=== PATIENT | female | born 1940 | race Caucasian/White ===

== ENCOUNTER 2020-07-15 09:17 | Outpatient (REF) | payer MEDICARE, OTHER, SELFPAY ==
[2020-07-15 10:26] LABS: MANUAL DIFF FLAG NO
[2020-07-15 10:33] LABS: Basophils Percent Auto 0.7 % (0-2); Eosinophils Absolute Auto 0.1 X10*3/uL (0.0-0.4); Eosinophils Percent Auto 2.3 % (0-4); Hematocrit 39.6 % (37-47); Hemoglobin 12.5 g/dl (12.0-16.0); Imm Gran Abs Auto 0.03 X10*3/uL (0.00-0.03); Imm Gran Pct Auto 0.5 % (0.0-0.4); Lymphocytes Absolute Auto 2.2 X10*3/uL (1.2-4.9); Lymphocytes Percent Auto 36.2 % (20-40); Mean Corpuscular HGB Conc 31.6 g/dl (31.0-35.0); Mean Corpuscular Hemoglobin 27.4 pg (27.0-33.0); Mean Corpuscular Volume 86.8 fL (80-98); Monocytes Absolute Auto 0.4 X10*3/uL (0.1-1.2); Monocytes Percent Auto 7.4 % (2-11); Neutrophils Absolute Auto 3.2 X10*3/uL (2.0-8.3); Neutrophils Percent Auto 52.9 % (45-73); Platelet Count 169 X10*3/uL (160-400); Red Blood Count 4.56 X10*6/uL (4.20-5.50); Red Cell Distribution Width 14.5 % (11.0-16.0)
[2020-07-15 11:20] LABS: Alanine Aminotransferase 15 U/L (0-31); Albumin Level 4.1 g/dL (3.5-5.0); Alkaline Phosphatase 70 U/L (39-117); Anion Gap 12 (12-20); Aspartate Amino Transferase 15 U/L (5-31); Bilirubin Total 0.5 mg/dL (0.0-1.0); Blood Urea Nitrogen 16 mg/dL (9-16); Calcium 9.1 mg/dL (8.4-10.2); Carbon Dioxide 32 mmol/L (22-29); Chloride 103 mmol/L (96-108); Cholesterol 322 mg/dL; Estimated Glomerular Filt Rate > 60; Glucose Fasting 92 mg/dL (60-99); HDL Cholesterol 70 mg/dL; LDL Cholesterol Calculated 234 mg/dl; Potassium 4.9 mmol/l (3.3-5.1); Sodium 142 mmol/L (135-145); Total Protein 6.4 g/dL (6.5-8.0); Triglycerides 92 mg/dL
[2020-07-15 11:43] LABS: T4 Thyroxine < 3.0 ug/dL (4.5-12.0); Thyroid Stimulating Hormone 16.16 mIU/mL (0.32-4.0)
[2020-07-15 12:08] LABS: Glucose Urine UA NEG (NEG); Leukocyte Esterase Urine 1+ (NEG); Nitrite Urine POS (NEG); PH 5.5 (5.0-8.0); Specific Gravity - Urine 1.025 (1.005-1.025); Urine Blood TRACE (NEG); Urine Ketones NEG (NEG); Urine Protein NEG (NEG-TRACE)
[2020-07-15 12:19] LABS: Appearance Urine HAZY; Color Urine YELLOW
[2020-07-15 12:32] LABS: Creatinine Urine 126.58 mg/dL; Microalbum/Creatinine Ratio Ur 10.2 ug/mg cr
[2020-07-15 12:40] LABS: Bacteria Urine 3+ /LPF; Mucus Urine 1+ /LPF; Squamous Epithelial Cell Urine 1+ /LPF
== END 2020-07-15 09:18 | disposition home or self-care (01) ==
LOC: HO.LAB 09:17
PROVIDERS: PCP Internal Medicine; Visit Provider Internal Medicine
DX: I25.10 Atherosclerotic heart disease of native coronary artery without angina pectoris (principal); E03.9 Hypothyroidism, unspecified; E10.69 Type 1 diabetes mellitus with other specified complication
CPT/HCPCS: 36415; 80053; 80061; 81001; 81003; 82043; 84436; 84443; 85025; 87086; 87088; 87186

== ENCOUNTER 2020-11-24 13:43 | Outpatient (REF) | payer MEDICARE, OTHER, SELFPAY ==
[2020-11-24 16:27] LABS: MANUAL DIFF FLAG NO
[2020-11-24 16:31] LABS: Basophils Absolute Auto 0.1 X10*3/uL (0.0-0.2); Basophils Percent Auto 1.2 % (0-2); Eosinophils Absolute Auto 0.4 X10*3/uL (0.0-0.4); Eosinophils Percent Auto 6.1 % (0-4); Hemoglobin 12.3 g/dl (12.0-16.0); Imm Gran Abs Auto 0.02 X10*3/uL (0.00-0.03); Imm Gran Pct Auto 0.3 % (0.0-0.4); Lymphocytes Absolute Auto 1.7 X10*3/uL (1.2-4.9); Lymphocytes Percent Auto 26.3 % (20-40); Mean Corpuscular HGB Conc 32.4 g/dl (31.0-35.0); Mean Corpuscular Hemoglobin 27.4 pg (27.0-33.0); Mean Corpuscular Volume 84.6 fL (80-98); Mean Platelet Volume 11.7 fL (9.4-12.3); Monocytes Absolute Auto 0.4 X10*3/uL (0.1-1.2); Monocytes Percent Auto 6.8 % (2-11); Neutrophils Absolute Auto 3.8 X10*3/uL (2.0-8.3); Neutrophils Percent Auto 59.3 % (45-73); Platelet Count 213 X10*3/uL (160-400); Red Blood Count 4.49 X10*6/uL (4.20-5.50); Red Cell Distribution Width 13.3 % (11.0-16.0); White Blood Count 6.4 X10*3/uL (4.8-10.8)
[2020-11-24 17:32] LABS: Alanine Aminotransferase 9 U/L (0-31); Albumin Level 3.9 g/dL (3.5-5.0); Alkaline Phosphatase 101 U/L (39-117); Anion Gap 14 (12-20); Aspartate Amino Transferase 11 U/L (5-31); Bilirubin Total 0.6 mg/dL (0.0-1.0); Blood Urea Nitrogen 20 mg/dL (9-16); Calcium 8.8 mg/dL (8.4-10.2); Carbon Dioxide 29 mmol/L (22-29); Chloride 102 mmol/L (96-108); Cholesterol 217 mg/dL; Estimated Glomerular Filt Rate 57; Free T4 (Free Thyroxine) 0.55 ng/dL (0.71-1.85); Glucose Fasting 369 mg/dL (60-99); HDL Cholesterol 46 mg/dL; LDL Cholesterol Calculated 152 mg/dl; Sodium 139 mmol/L (135-145); Thyroid Stimulating Hormone 8.07 uIU/mL (0.32-4.0); Total Protein 6.3 g/dL (6.5-8.0); Triglycerides 95 mg/dL
[2020-11-24 18:32] LABS: Potassium 6.1 mmol/L (3.3-5.1)
== END 2020-11-24 13:44 | disposition home or self-care (01) ==
LOC: HO.LAB 13:43
PROVIDERS: Internal Medicine; Visit Provider Nurse Practitioner Family
DX: Z13.89 Encounter for screening for other disorder (principal)
CPT/HCPCS: 36415; 80053; 80061; 84439; 84443; 85025; 87086

== ENCOUNTER 2020-11-24 13:57 | Outpatient (REF) | payer MEDICARE, OTHER, SELFPAY | END 2020-11-24 13:58 | disposition home or self-care (01) | LOC: HO.HMGCLDS 13:57 | PROVIDERS: PCP Internal Medicine; Visit Provider Internal Medicine | DX: E10.69 Type 1 diabetes mellitus with other specified complication (principal); I25.10 Atherosclerotic heart disease of native coronary artery without angina pectoris; E78.00 Pure hypercholesterolemia, unspecified; E03.9 Hypothyroidism, unspecified; R10.9 Unspecified abdominal pain | CPT/HCPCS: 36415; 80053; 80061; 84439; 84443; 85025; 87086; 87088; 87186 ==

== ENCOUNTER 2021-01-13 09:24 | Outpatient (REF) | payer MEDICARE, OTHER, SELFPAY ==
--- NOTE | ~2021-01-13 | XR_ITS ---
EXAMINATION: XR KNEE, LEFT CLINICAL INFORMATION: Pain knee COMPARISON: None TECHNIQUE: Four views of the left knee. FINDINGS: There is mild osteopenia. There is no fracture or dislocation. No destructive process. No definite joint narrowing and no erosive change or chondrocalcinosis. There may be some trace fluid suprapatellar bursa. No significant fluid. There is spurring at the quadriceps insertion patella. Hoffa's fat pad is unremarkable. XR/XR knee LT 4V IMPRESSION: Osteopenia. No joint narrowing or erosive change. Probable trace effusion.
[2021-01-13 11:06] LABS: Estimated Average Glucose 260 mg/dL; Hemoglobin A1c % 10.7 %
[2021-01-13 11:19] LABS: Alanine Aminotransferase 13 U/L (0-31); Albumin Level 3.9 g/dL (3.5-5.0); Alkaline Phosphatase 86 U/L (39-117); Anion Gap 13 (12-20); Aspartate Amino Transferase 13 U/L (5-31); Bilirubin Total 0.7 mg/dL (0.0-1.0); Blood Urea Nitrogen 21 mg/dL (9-16); Calcium 9.1 mg/dL (8.4-10.2); Carbon Dioxide 29 mmol/L (22-29); Chloride 101 mmol/L (96-108); Cholesterol 270 mg/dL; Estimated Glomerular Filt Rate > 60; Glucose Fasting 159 mg/dL (60-99); HDL Cholesterol 58 mg/dL; LDL Cholesterol Calculated 193 mg/dl; Magnesium 2.2 mg/dL (1.6-2.6); Potassium 4.8 mmol/L (3.3-5.1); Sodium 138 mmol/L (135-145); Total Protein 6.2 g/dL (6.5-8.0); Triglycerides 96 mg/dL
[2021-01-13 11:44] LABS: Free T4 (Free Thyroxine) < 0.40 ng/dL (0.71-1.85); Thyroid Stimulating Hormone 10.88 uIU/mL (0.32-4.0)
[2021-01-13 12:53] LABS: Glucose Urine UA NEG (NEG); Leukocyte Esterase Urine 1+ (NEG); Nitrite Urine POS (NEG); PH 5.5 (5.0-8.0); Specific Gravity - Urine 1.025 (1.005-1.025); UACC Culture Trigger YES; Urine Blood NEG (NEG); Urine Ketones NEG (NEG); Urine Protein NEG (NEG-TRACE)
[2021-01-13 12:56] LABS: Appearance Urine CLOUDY; Color Urine YELLOW
[2021-01-13 13:01] LABS: Bacteria Urine 3+ /LPF; Mucus Urine 3+ /LPF; RBC Urine 0 /HPF (0); Renal Epithelial Cells Urine 1+ /LPF; Squamous Epithelial Cell Urine 1+ /LPF
[2021-01-13 13:43] LABS: Creatinine Urine 132.48 mg/dL; Microalbum/Creatinine Ratio Ur 7.5 ug/mg cr
== END 2021-01-13 09:25 | disposition home or self-care (01) ==
LOC: HO.LAB 09:24
PROVIDERS: PCP Internal Medicine; Visit Provider Internal Medicine
DX: M25.562 Pain in left knee (principal); E10.69 Type 1 diabetes mellitus with other specified complication; E03.9 Hypothyroidism, unspecified; E78.00 Pure hypercholesterolemia, unspecified; E87.5 Hyperkalemia
CPT/HCPCS: 36415; 73564; 80053; 80061; 81001; 81003; 82043; 83036; 83735; 84439; 84443; 87086; 87186

== ENCOUNTER 2021-01-17 08:10 | Emergency (ER) | payer MEDICARE, OTHER, SELFPAY ==
--- NOTE | ~2021-01-17 | XR_ITS ---
EXAMINATION: XR CHEST CLINICAL INFORMATION: Generalized weakness, rule out dehydration. COMPARISON: None TECHNIQUE: Frontal view of the chest was obtained. FINDINGS: The lungs are clear. Post surgical changes are seen in the cardiac silhouette with multiple surgical clips and a mitral valve prosthesis. The heart and mediastinal structures are otherwise unremarkable. Multilevel sternotomy wires are intact. A lead overlies the left lower chest. XR/XR chest 1V IMPRESSION: No acute cardiopulmonary process.
[2021-01-17 08:19] VITALS: BP 104/73; BP 180/76; PULSE 66; PULSE 82; RESP 12; TEMP 36.4; O2SAT 100; O2SAT 98; BMI 20.6
--- NOTE | 2021-01-17 08:24 | ECG_ITS ---
Test Reason : WEAKNESS Blood Pressure : / mmHG Vent. Rate : 066 BPM Atrial Rate : 066 BPM P-R Int : 192 ms QRS Dur : 090 ms QT Int : 428 ms P-R-T Axes : 072 -57 105 degrees QTc Int : 448 ms Sinus rhythm with Premature atrial complexes Left axis deviation Nonspecific T wave abnormality Abnormal ECG No previous ECGs available Referred By: Sophie Hoover Electronically Signed By:JAMEE KIM MD
[2021-01-17 08:26] LABS: Glucose, Whole Blood 237 mg/dL (60-115)
[2021-01-17] MEDS: 0.9 % Sodium Chloride 1,000 ML 999 ML IVCONT ×2 (08:32→10:42)
--- NOTE | 2021-01-17 08:34 | ED.GENADULT ---
HPI - General Adult General Chief complaint: General Medical Stated complaint: weakness Time Seen by Provider: 01/17/21 08:23 Source: patient and EMS Mode of arrival: EMS Limitations: no limitations History of Present Illness HPI narrative: 80-year-old female came in by ambulance for evaluation of generalized weakness and possible dehydration. This is an 80-year-old female came in from home (patient lives home alone), symptoms started since yesterday, patient otherwise declined chest pain, abdominal pain, urinary symptoms, and headache. Patient stated that she is not drinking enough fluid and she is dehydrated. Related Data Home Medications Medication Instructions Recorded Confirmed levothyroxine 75 mcg tablet 75 mcg PO DAILY 08/04/20 08/21/20 pen needle, diabetic 32 gauge x #50 ea 08/04/20 08/21/20 Previous Rx's Medication Instructions Recorded blood-glucose meter,continuous #1 ea 08/04/20 blood-glucose sensor #3 ea 08/04/20 blood-glucose transmitter #1 ea 08/04/20 insulin pump cartridge #5 ea 08/04/20 subcutaneous insulin pump #1 ea 08/04/20 insulin glargine 100 unit/mL (3 See Rx Instructions SUBCUT DAILY 10/02/20 mL) subcutaneous pen #15 ml prednisone 20 mg tablet 40 mg PO DAILY 5 Days #10 tab 11/24/20 sulfamethoxazole 800 1 tab PO BID 7 Days #14 tab 11/24/20 mg-trimethoprim 160 mg tablet Allergies Allergy/AdvReac Type Severity Reaction Status Date / Time No Known Allergies Allergy Verified 08/21/20 02:15 Review of Systems Review of Systems: All other systems are reviewed and are negative Constitutional: Reports as per HPI and Reports no additional constitutional complaints Eyes: Reports as per HPI and Reports no additional eye complaints Reports system reviewed and no additional complaints, except as documented Cardiovascular: Reports as per HPI and Reports no additional cardiovascular complaints Respiratory: Reports as per HPI and Reports no additional respiratory complaints Gastrointestinal: Reports as per HPI and Reports no additional gastrointestinal complaints Genitourinary: Reports no additional female genitourinary complaints Musculoskeletal: Reports no additional musculoskeletal complaints Skin/Breast: Reports system reviewed and no additional complaints, except as docu Psychiatric: Reports no additional psychiatric complaints Endocrine: Reports no additional endocrine complaints Hematologic/Lymphatic: Reports no additional hematologic/lymphatic complaints Allergic/Immunologic: Reports no additional allergic/immunologic complaints Reports system reviewed and no additional complaints, except as documented and Reports Abnormal speech present [facility] Past Medical History Medical History Acquired hypothyroidism Blind left eye Coronary artery disease Hyperkalemia [facility] (current) use of insulin Pure hypercholesterolemia Right knee pain Type 1 diabetes mellitus with other specified complication Surgical History History of quadruple bypass Family History Family History Father No problems noted. Mother No problems noted. Social History Social History (Updated 08/21/20 @ 02:16 by Vishnu Pascal MD) Smoking Status: Never smoker Smoked in Last 30 Days: No Use of substances other than those prescribed or required for medical reasons: No Advance Directives: Yes Advance Directives on File: Yes Advance Directives Date on File: 08/04/20 Physical Exam Vital Signs: Vital Signs: Last Vital Signs Temp 97.6 F 01/17/21 08:19 Pulse 77 01/17/21 10:24 Resp 16 01/17/21 10:24 BP 179/58 H 01/17/21 10:24 Pulse Ox 97 01/17/21 10:24 Body Mass Index 20.6 Vital signs have been reviewed as appeared to be correct. Blood pressure normal. Heart rate normal. Respiration rate normal. Temperature normal. Oxygen saturation normal. Appearance: Alert. Oriented X3. No acute distress. Head: Normal external exam. Normocephalic. Atraumatic. No [place] signs noted. No raccoon eyes noted Eyes: PERRLA. EOMI. Conjunctiva and sclera normal. Eyelids normal. ENT: TM's Normal. Pharynx normal. Uvula midline. Moist mucous membranes. No trismus noted. No drooling noted. No muffled voice noted. Neck: Normal inspection. Neck supple. FROM. No adenopathy. Thyroid Normal. No meningeal signs. No neck mass noted. CVS: Normal heart rate and rhythm. Heart sound normal. No murmurs noted. Pulses normal throughout. Respiratory: No respiratory distress. Painless inspiration. Breath sounds normal. No wheezes/rales/rhonchi noted. Chest nontender. No accessory muscle usage noted or decreased air movement noted. Abdomen: Soft and nontender. Bowel sounds normal in all 4 quadrants. No distention noted. No organomegaly noted. No visible injury noted. Back: No CVA tenderness. Full range of motion noted. Skin: Skin warm and dry. Normal skin color. Normal skin turgor. No rashes/lesions/lacerations noted. Extremities: No lower extremity edema. Extremities exhibit normal range of motion. Extremities nontender. Neuro: Oriented X 3. No motor deficit. No sensory deficit. Reflexes normal. Course Course Course Narrative: Assessment and plan. 80-year-old female came in with generalized weakness thought to be secondary to dehydration, patient UA is consistent with a mild UTI, patient was over antibiotic but patient adamantly refused to take it because she said her UTI usually goes away with Uristat and drinking fluids. Patient feels better after IV hydration, patient is ambulating in the emergency department with a walker (patient normally walk with a walker). Patient was instructed to drink plenty of oral fluids. Medical Decision Making Lab Data Lab results reviewed: Yes I reviewed the patient's lab results. Result diagrams: 01/17/21 08:36 01/17/21 08:36 Labs: Lab Results 01/17/21 01/17/21 01/17/21 Range/Units 08:19 08:36 08:36 WBC 6.3 (4.8-10.8) X10*3/uL RBC 4.65 (4.20-5.50) X10*6/uL Hgb 12.7 (12.0-16.0) g/dl Hct 38.8 (37-47) % MCV 83.4 (80-98) fL MCH 27.3 (27.0-33.0) pg MCHC 32.7 (31.0-35.0) g/dl RDW 14.3 (11.0-16.0) % Plt Count 209 (160-400) X10*3/uL MPV 11.1 (9.4-12.3) fL Immature Gran % (Auto) 0.3 (0.0-0.4) % Neut % (Auto) 60.5 (45-73) % Lymph % (Auto) 27.4 (20-40) % [place] % (Auto) 6.7 (2-11) % Eos % (Auto) 4.0 (0-4) % Baso % (Auto) 1.1 (0-2) % Lymph # (Auto) 1.7 (1.2-4.9) X10*3/uL [place] # (Auto) 0.4 (0.1-1.2) X10*3/uL Eos # (Auto) 0.3 (0.0-0.4) X10*3/uL Baso # (Auto) 0.1 (0.0-0.2) X10*3/uL Abs Immat Gran (auto) 0.02 (0.00-0.03) X10*3/uL Absolute Neuts (auto) 3.8 (2.0-8.3) X10*3/uL Absolute Nucleated RBC 0.000 (0.0-0.012) X10*3/uL Nucleated RBC % (auto) 0.0 (0.0-0.2) /100WBC Sodium 136 (135-145) mmol/L Potassium 4.3 (3.3-5.1) mmol/L Chloride 99 (96-108) mmol/L Carbon Dioxide 25 (22-29) mmol/L Anion Gap 16 (12-20) BUN 17 H (9-16) mg/dL Creatinine 0.80 (0.5-1.4) mg/dL Estim Creat Clear Calc 49.7 Estimated GFR > 60 POC Glucose 237 H (60-115) mg/dL Random Glucose 292 H (60-115) mg/dL Calcium 8.7 (8.4-10.2) mg/dL Total Bilirubin 0.9 (0.0-1.0) mg/dL Direct Bilirubin 0.3 (0.0-0.5) mg/dL AST 10 (5-31) U/L ALT 12 (0-31) U/L Alkaline Phosphatase 99 (39-117) U/L Troponin I High Sens (<3.5-17.0) ng/L B-Natriuretic Peptide (<100) pg/mL Total Protein 6.1 L (6.5-8.0) g/dL Albumin 3.7 (3.5-5.0) g/dL Lipase < 4 L (8-78) U/L Urine Color Urine Appearance Urine pH (5.0-8.0) Ur Specific [place] (1.005-1.025) Urine Protein (NEG-TRACE) MG/DL Urine Glucose (UA) (NEG) MG/DL Urine Ketones (NEG) MG/DL Urine Blood (NEG) Urine Nitrite (NEG) Ur Leukocyte Esterase (NEG) Urine RBC (0) /HPF Urine WBC (0-4) /HPF Ur Squamous Epith Cells /LPF Urine Bacteria /LPF COVID-19 (HERB) (Negative) COVID-19 Clin Com 01/17/21 01/17/21 01/17/21 Range/Units 08:36 08:37 10:27 WBC (4.8-10.8) X10*3/uL RBC (4.20-5.50) X10*6/uL Hgb (12.0-16.0) g/dl Hct (37-47) % MCV (80-98) fL MCH (27.0-33.0) pg MCHC (31.0-35.0) g/dl RDW (11.0-16.0) % Plt Count (160-400) X10*3/uL MPV (9.4-12.3) fL Immature Gran % (Auto) (0.0-0.4) % Neut % (Auto) (45-73) % Lymph % (Auto) (20-40) % [place] % (Auto) (2-11) % Eos % (Auto) (0-4) % Baso % (Auto) (0-2) % Lymph # (Auto) (1.2-4.9) X10*3/uL [place] # (Auto) (0.1-1.2) X10*3/uL Eos # (Auto) (0.0-0.4) X10*3/uL Baso # (Auto) (0.0-0.2) X10*3/uL Abs Immat Gran (auto) (0.00-0.03) X10*3/uL Absolute Neuts (auto) (2.0-8.3) X10*3/uL Absolute Nucleated RBC (0.0-0.012) X10*3/uL Nucleated RBC % (auto) (0.0-0.2) /100WBC Sodium (135-145) mmol/L Potassium (3.3-5.1) mmol/L Chloride (96-108) mmol/L Carbon Dioxide (22-29) mmol/L Anion Gap (12-20) BUN (9-16) mg/dL Creatinine (0.5-1.4) mg/dL Estim Creat Clear Calc Estimated GFR POC Glucose (60-115) mg/dL Random Glucose (60-115) mg/dL Calcium (8.4-10.2) mg/dL Total Bilirubin (0.0-1.0) mg/dL Direct Bilirubin (0.0-0.5) mg/dL AST (5-31) U/L ALT (0-31) U/L Alkaline Phosphatase (39-117) U/L Troponin I High Sens 3.5 (<3.5-17.0) ng/L B-Natriuretic Peptide 26 (<100) pg/mL Total Protein (6.5-8.0) g/dL Albumin (3.5-5.0) g/dL Lipase (8-78) U/L Urine Color YELLOW Urine Appearance HAZY Urine pH 6.0 (5.0-8.0) Ur Specific [place] 1.010 (1.005-1.025) Urine Protein NEG (NEG-TRACE) MG/DL Urine Glucose (UA) 500 H (NEG) MG/DL Urine Ketones 15 (NEG) MG/DL Urine Blood NEG (NEG) Urine Nitrite POS H (NEG) Ur Leukocyte Esterase 1+ H (NEG) Urine RBC 0 (0) /HPF Urine WBC 10-14 H (0-4) /HPF Ur Squamous Epith Cells 1+ /LPF Urine Bacteria 4+ /LPF COVID-19 (HERB) Negative (Negative) COVID-19 Clin Com See Note Imaging Data Chest x-ray: Radiologist's impression: No acute cardiopulmonary process. ECG Data Interpretation: Normal sinus rhythm at 65 beats per minutes, left axis deviation, normal intervals, nonspecific T-wave flattening in V5, and V6. Discharge Plan Discharge Clinical Impression: Acute dehydration, Urinary tract infection in female Patient Disposition: Home, Self-Care Instructions: Dehydration (ED), Urinary Tract Infection in Women (ED) Prescriptions: No Action Lantus Solostar U-100 Insulin 100 unit/mL (3 mL) insulin pen See Rx Instructions subcut DAILY Qty: 15 RF: 3 levothyroxine 75 mcg tablet 75 mcg PO DAILY RF: 0 (DME) pen needle, diabetic 32 gauge x 5/32 needle See Rx Instructions ea subcut .MEDSUPPLY Qty: 50 RF: 0 (DME) Omnipod Dash 5 Pack Pod Cartridge See Rx Instructions .ROUTE .MEDSUPPLY Qty: 5 RF: 11 (DME) Omnipod Insulin Management Misc See Rx Instructions .ROUTE .MEDSUPPLY Qty: 1 RF: 3 (DME) Dexcom G6 Sensor Device See Rx Instructions .ROUTE .MEDSUPPLY Qty: 3 RF: 5 (DME) Dexcom G6 Transmitter Device See Rx Instructions .ROUTE .MEDSUPPLY Qty: 1 RF: 5 (DME) Dexcom [employer] Crm Developer Misc See Rx Instructions .ROUTE .MEDSUPPLY Qty: 1 RF: 5 sulfamethoxazole-trimethoprim 800-160 mg tablet 1 tab PO BID 7 Days Qty: 14 RF: 0 prednisone 20 mg tablet 40 mg PO DAILY 5 Days Qty: 10 RF: 0 Referrals: Vishnu Pascal MD [Primary Care Provider] - 2 days
[2021-01-17 08:42] LABS: MANUAL DIFF FLAG NO
[2021-01-17 08:52] LABS: Basophils Absolute Auto 0.1 X10*3/uL (0.0-0.2); Basophils Percent Auto 1.1 % (0-2); Eosinophils Absolute Auto 0.3 X10*3/uL (0.0-0.4); Hematocrit 38.8 % (37-47); Hemoglobin 12.7 g/dl (12.0-16.0); Imm Gran Abs Auto 0.02 X10*3/uL (0.00-0.03); Imm Gran Pct Auto 0.3 % (0.0-0.4); Lymphocytes Absolute Auto 1.7 X10*3/uL (1.2-4.9); Lymphocytes Percent Auto 27.4 % (20-40); Mean Corpuscular HGB Conc 32.7 g/dl (31.0-35.0); Mean Corpuscular Hemoglobin 27.3 pg (27.0-33.0); Mean Corpuscular Volume 83.4 fL (80-98); Mean Platelet Volume 11.1 fL (9.4-12.3); Monocytes Absolute Auto 0.4 X10*3/uL (0.1-1.2); Monocytes Percent Auto 6.7 % (2-11); Neutrophils Absolute Auto 3.8 X10*3/uL (2.0-8.3); Neutrophils Percent Auto 60.5 % (45-73); Platelet Count 209 X10*3/uL (160-400); Red Blood Count 4.65 X10*6/uL (4.20-5.50); Red Cell Distribution Width 14.3 % (11.0-16.0); White Blood Count 6.3 X10*3/uL (4.8-10.8)
[2021-01-17 09:06] LABS: COVID-19 Test Negative (Negative)
[2021-01-17 09:14] LABS: Alanine Aminotransferase 12 U/L (0-31); Albumin Level 3.7 g/dL (3.5-5.0); Alkaline Phosphatase 99 U/L (39-117); Anion Gap 16 (12-20); Aspartate Amino Transferase 10 U/L (5-31); Bilirubin Direct 0.3 mg/dL (0.0-0.5); Bilirubin Total 0.9 mg/dL (0.0-1.0); Blood Urea Nitrogen 17 mg/dL (9-16); Calcium 8.7 mg/dL (8.4-10.2); Carbon Dioxide 25 mmol/L (22-29); Chloride 99 mmol/L (96-108); Creatinine Clr Calc Pharmacy 49.7; Estimated Glomerular Filt Rate > 60; Glucose Random 292 mg/dL (60-115); Lipase < 4 U/L (8-78); Potassium 4.3 mmol/L (3.3-5.1); Sodium 136 mmol/L (135-145); Total Protein 6.1 g/dL (6.5-8.0)
[2021-01-17 09:18] LABS: B Type Natriuretic Peptide 26 pg/mL (<100); Troponin-I High Sensitivity 3.5 ng/L (<3.5-17.0)
[2021-01-17 10:24] VITALS: BP 179/58; PULSE 77; RESP 16; O2SAT 97
[2021-01-17 10:33] LABS: Appearance Urine HAZY; Color Urine YELLOW; Glucose Urine UA 500 MG/DL (NEG); Leukocyte Esterase Urine 1+ (NEG); Nitrite Urine POS (NEG); UACC Culture Trigger YES; Urine Blood NEG (NEG); Urine Ketones 15 MG/DL (NEG); Urine Protein NEG (NEG-TRACE)
[2021-01-17 10:55] LABS: Bacteria Urine 4+ /LPF; RBC Urine 0 /HPF (0); Squamous Epithelial Cell Urine 1+ /LPF
[2021-01-17] MEDS: Acetaminophen 325 MG TABLET 650 MG PO (11:07)
--- NOTE | 2021-01-17 11:08 | PC.NURSE ---
patient states she does not want to take antibiotic because she is allergic to too many. none on record and patient does not know which ones. md aware. patient states she will go to [facility] and buy urostat which she states clears up her UTIs.
== END 2021-01-17 11:28 | disposition home or self-care (01) ==
PROVIDERS: Emergency Provider Emergency Medicine; PCP Internal Medicine
DX: N39.0 Urinary tract infection, site not specified (principal); E86.0 Dehydration; R53.1 Weakness; Z20.822 Contact with and (suspected) exposure to COVID-19; Z79.899 Other long term (current) drug therapy
CPT/HCPCS: 36415; 71045; 80048; 80076; 81001; 81003; 82947; 83690; 83880; 84484; 85025; 87086; 87088; 87186; 87635; 93005; 96360; 99284

== ENCOUNTER 2021-06-21 10:07 | Outpatient (REF) | payer MEDICARE, OTHER, SELFPAY ==
[2021-06-21 12:31] LABS: Estimated Average Glucose 278 mg/dL; Hemoglobin A1c % 11.3 %
[2021-06-21 12:42] LABS: Cholesterol 248 mg/dL; Glucose Fasting 284 mg/dL (60-99); HDL Cholesterol 50 mg/dL; LDL Cholesterol Calculated 181 mg/dl; Triglycerides 86 mg/dL
[2021-06-21 12:54] LABS: TSH reflex Free T4 5.89 uIU/mL (0.32-4.0)
[2021-06-21 14:28] LABS: Free T4 (Free Thyroxine) 0.63 ng/dL (0.71-1.85)
== END 2021-06-21 10:08 | disposition home or self-care (01) ==
LOC: HO.LAB 10:07
PROVIDERS: Absent Provider Internal Medicine; PCP Internal Medicine; Visit Provider Nurse Practitioner Family
DX: E03.9 Hypothyroidism, unspecified (principal); E11.9 Type 2 diabetes mellitus without complications; E78.00 Pure hypercholesterolemia, unspecified; I25.10 Atherosclerotic heart disease of native coronary artery without angina pectoris; Z79.4 Long term (current) use of insulin
CPT/HCPCS: 36415; 80061; 82947; 83036; 84439; 84443

== ENCOUNTER 2021-09-13 16:10 | Inpatient (IN) | payer MEDICARE, OTHER, SELFPAY ==
--- NOTE | ~2021-09-13 | XR_ITS ---
EXAMINATION: XR chest 1V CLINICAL INFORMATION: Reason for Exam cough COMPARISON: Chest radiograph 01/17/2021 TECHNIQUE: One view of the chest XR/XR chest 1V FINDINGS/IMPRESSION: Clear lungs. No pneumothorax. No pleural effusion. Normal cardiomediastinal silhouette. Median sternotomy wires. Cardiac valve prosthesis. Median sternotomy clips. Similar retained lead overlying the left chest wall.
--- NOTE | ~2021-09-13 | CT_ITS ---
EXAMINATION: CT ANGIOGRAM CHEST WITH AND WITHOUT CONTRAST (CT PULMONARY ANGIOGRAM FOR PE) CLINICAL INFORMATION: Dyspnea with high D-dimer, PE suspected. COMPARISON: Chest radiograph done earlier the same day. TECHNIQUE: Prior to contrast administration, noncontrast localization images were obtained. Subsequently, multidetector volumetric imaging was performed from the thoracic inlet to below the diaphragms following the administration of 65 mL Omnipaque 350 intravenous contrast. No contrast reaction reported. Sagittal, coronal, and MIP oblique sagittal reformatted images were obtained on the CT workstation, uploaded to PACS, and reviewed. This CT examination was performed using dose optimization techniques as appropriate, variously including the following: *Automated exposure control. *Adjustment of mA and/or kV according to patient size (this includes techniques or standardized protocols for targeted exams where dose is matched to indication/reason for exam; i.e. extremities or head). *Use of iterative reconstruction technique. Total exam dose-length product 192 mGy-cm. FINDINGS: QUALITY OF STUDY/CONTRAST BOLUS: Satisfactory. PULMONARY ARTERIES: No central or segmental pulmonary emboli. Mild dilatation of the central pulmonary arteries, which can be seen in the setting of pulmonary hypertension. THORACIC AORTA: No thoracic aortic dilatation or dissection. Scattered atherosclerotic calcifications. LUNG: There are mild, patchy bilateral ground-glass airspace opacities within the periphery of the lungs. Findings can be seen in the setting of a multifocal infectious or inflammatory pneumonia, including viral pneumonia. No large, confluent airspace consolidation. No large pulmonary mass. The central airways are patent. PLEURA: No pleural effusion or pneumothorax. MEDIASTINUM: Normal heart size. No pericardial effusion. No hilar or mediastinal lymphadenopathy. No evidence of septal bowing or right heart strain. CHEST WALL/AXILLA: No axillary or internal mammary lymphadenopathy. OSSEOUS STRUCTURES: No acute or suspicious osseous abnormality. UPPER ABDOMEN: Unremarkable. No reflux of contrast into the hepatic veins to suggest elevated right heart pressures. CT/CT angio chest PE protocol IMPRESSION: 1. No central or segmental pulmonary embolism. 2. Mild, patchy peripheral ground-glass opacities within the bilateral lungs. Findings can be seen in the setting of multifocal infectious or inflammatory pneumonia, including viral pneumonia. 3. No lymphadenopathy. VTE: Negative.
--- NOTE | ~2021-09-13 | US_ITS ---
EXAMINATION: US VENOUS ULTRASOUND WITH DOPPLER LOWER EXTREMITY, BILATERAL CLINICAL INFORMATION: Positive d-dimer. Covid positive. COMPARISON: None TECHNIQUE: Ultrasound of the deep veins is performed from the hip to the calf with compression sonography and color and pulse Doppler assessment. Spectral analysis with color-flow imaging is performed. FINDINGS: RIGHT: There is normal venous compression and respiratory variation and augmented flow. The visualized common femoral vein, superficial femoral vein, profunda femoral vein, popliteal vein, and the trifurcation region shows no evidence of deep venous thrombosis. The peroneal veins are not well seen. Limited compression of the popliteal vein. There is no significant popliteal fossa cyst. LEFT: There is normal venous compression and respiratory variation and augmented flow. The visualized common femoral vein, superficial femoral vein, profunda femoral vein, popliteal vein, and the trifurcation region shows no evidence of deep venous thrombosis. The peroneal veins are not well seen. Limited compression of the popliteal vein. There is no significant popliteal fossa cyst. If the patient's symptoms persist, followup ultrasound in 5 days 7 days might be of value to exclude proximal propagation from a non-visualized calf vein. US/US venous duplex LE IMPRESSION: No DVT demonstrated in the bilateral lower extremities. Limited compression of the popliteal vein bilaterally is of uncertain significance.
[2021-09-13 16:27] VITALS: BP 170/52; PULSE 80; O2SAT 97
--- NOTE | 2021-09-13 16:51 | ECG_ITS ---
Test Reason : sob Blood Pressure : / mmHG Vent. Rate : 069 BPM Atrial Rate : 069 BPM P-R Int : 170 ms QRS Dur : 088 ms QT Int : 390 ms P-R-T Axes : 070 -55 086 degrees QTc Int : 417 ms Sinus rhythm with Premature atrial complexes Left anterior fascicular block Anterior infarct , age undetermined Abnormal ECG When compared with ECG of 17-JAN-2021 09:02, Nonspecific T wave abnormality, improved in Lateral leads Referred By: Marek Villatoro Electronically Signed By:RUCHI CASANOVA
[2021-09-13 16:53] VITALS: BP 150/45; PULSE 75; RESP 18; TEMP 37.3; O2SAT 95; BMI 19.2
--- NOTE | 2021-09-13 16:54 | ED_ITS ---
HPI - General Adult General Chief complaint: General Medical Stated complaint: ?covid & hyperglycemia Time Seen by Provider: 09/13/21 16:38 Source: patient, EMS and old records reviewed History of Present Illness HPI narrative: Patient states she has had a cough with sputum for approximately a week or more. She is vague and states she does not remember exactly when it started. She denies any pain. Positive shortness of breath on exertion no. She also states her blood sugars have been very high. A over 400 on her meter. All feels generally very good and weak. She has not been vaccinated against COVID-19. Her has a similar syndrome. No history of COPD or asthma or pneumonia. She does have a history of type 1 diabetes Related Data Home Medications Medication Instructions Recorded Confirmed pen needle, diabetic 32 gauge x #50 ea 08/04/20 03/31/21 Previous Rx's Medication Instructions Recorded subcutaneous insulin pump (Omnipod #1 ea 08/04/20 Insulin Management) sulfamethoxazole 800 1 tab PO BID 7 Days #14 tab 11/24/20 mg-trimethoprim 160 mg tablet insulin glargine 100 unit/mL (3 See Rx Instructions SUBCUT DAILY 02/19/21 mL) subcutaneous pen (Lantus 90 Days #45 ml Solostar U-100 Insulin) thyroid (pork) 90 mg tablet 90 mg PO DAILY 90 Days #90 tab 02/23/21 ([place] Thyroid) blood-glucose meter,continuous #1 ea 05/04/21 ([employer]) blood-glucose sensor (Dexcom G6 #3 ea 05/04/21 Sensor) blood-glucose transmitter (Dexcom #1 ea 08/09/21 G6 Transmitter) Allergies Allergy/AdvReac Type Severity Reaction Status Date / Time No Known Allergies Allergy Verified 06/18/21 12:39 Review of Systems Constitutional: Constitutional: Reports anorexia, Reports body ache(s), Reports fatigue and Denies fever(s) Cardiovascular: Comments: No chest pain Respiratory: Comments: Cough with sputum and dyspnea on exertion Gastrointestinal: Comments: No nausea vomiting. 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 Mother No problems noted. Social History Social History (Updated 02/15/21 @ 13:38 by SERGE Pabon) Household Members: Spouse Housing: House Do you presently have visiting nurse or other home services: No Alcohol intake: never Patient Tobacco Use Status: Never used Tobacco Use of substances other than those prescribed or required for medical reasons: No Currently Displaying Signs/Symptoms of Drug Intoxication Withdrawal: No Have you been hit, kicked, punched, or otherwise hurt by someone within the past year? If so, by whom?: No Do you feel safe in your current relationship?: Yes Is there a partner from a previous relationship who is making you feel unsafe now?: No Are you made to feel afraid or neglected: No Advance Directives: Yes Advance Directives on File: Yes Advance Directives Date on File: 08/04/20 Do you have thoughts of harming others: None Do you have a plan to hurt others: No Plan Recently lost weight without trying: Unsure Nutrition Risks: No Nutritional Risk Patient : No : No Poor oral hygiene: No service: No Current occupational status: retired Physical Exam Vital Signs: Vital Signs: Last Vital Signs Temp 98 F 09/14/21 08:00 Pulse 71 09/14/21 08:00 Resp 18 09/14/21 08:00 BP 161/70 H 09/14/21 08:00 Pulse Ox 98 09/14/21 08:00 BMI result Body Mass Index 19.2 Const: Other: Awake and alert. Appears fatigued but in no acute distress HENMT: Other: Mucosa dry Resp: Other: Diminished bilaterally with bibasilar rales. Patient coughing during exam with yellowish sputum demonstrated Cardio: Other: Regular rate and rhythm without murmurs rubs or gallops GI: Other: Soft nontender nondistended Skin: Other: Warm pink and dry without rash. Poor skin turgor. Neuro: Other: No focal deficit Extrem: Other: No calf tenderness or pedal edema Course Course Course Narrative: COVID-19 infection Influenza Pneumonia Bronchitis Hyperglycemia Diabetic ketoacidosis Hyperglycemia Dehydration IV fluids IV insulin 9:11 p.m.. Workup in the emergency department is significant for patient has COVID-19. Her D-dimer was markedly elevated so CT scan was ordered. It does not show any evidence of pulmonary embolism but does confirm bilateral ground-glass opacities consistent with COVID pneumonia. At rest on my evaluation when I went to re-evaluate the patient, she was resting with the saturation of 88% off oxygen. Will hospitalize her for hypoxia secondary to COVID-19 pneumonia. Medical Decision Making Lab Data Result diagrams: 09/14/21 06:06 09/14/21 06:06 Labs: Lab Results 09/13/21 09/13/21 09/13/21 Range/Units 17:36 17:37 17:37 WBC (4.8-10.8) X10*3/uL RBC (4.20-5.50) X10*6/uL Hgb (12.0-16.0) g/dl Hct (37.0-47.0) % MCV (80.0-98.0) fL MCH (27.0-33.0) pg MCHC (31.0-35.0) g/dl RDW (11.0-16.0) % Plt Count (160-400) X10*3/uL MPV (9.4-12.3) fL Immature Gran % (Auto) (0.0-0.4) % Neut % (Auto) (45-73) % Lymph % (Auto) (20-40) % [place] % (Auto) (2-11) % Eos % (Auto) (0-4) % Baso % (Auto) (0-2) % Lymph # (Auto) (1.2-4.9) X10*3/uL [place] # (Auto) (0.1-1.2) X10*3/uL Eos # (Auto) (0.0-0.4) X10*3/uL Baso # (Auto) (0.0-0.2) X10*3/uL Abs Immat Gran (auto) (0.00-0.03) X10*3/uL Absolute Neuts (auto) (2.0-8.3) x10*3/uL Absolute Nucleated RBC (0.0-0.012) X10*3/uL Nucleated RBC % (auto) (0.0-0.2) /100WBC PT (9.9-13.0) SEC INR (0.9-1.1) D-Dimer High Sensitivty NG/ML Sodium (135-145) mmol/L Potassium (3.3-5.1) mmol/L Chloride (96-108) mmol/L Carbon Dioxide (22-29) mmol/L Anion Gap (12-20) BUN (9-16) mg/dL Creatinine (0.5-1.4) mg/dL Estim Creat Clear Calc Estimated GFR POC Glucose (60-115) mg/dL Random Glucose (60-115) mg/dL Lactic Acid 1.6 (0.5-2.0) mmol/L Calcium (8.4-10.2) mg/dL Total Bilirubin (0.0-1.0) mg/dL AST (5-31) U/L ALT (0-31) U/L Alkaline Phosphatase (39-117) U/L Troponin I High Sens 10.3 (<3.5-17.0) ng/L B-Natriuretic Peptide (<100) pg/mL Total Protein (6.5-8.0) g/dL Albumin (3.5-5.0) g/dL Acetone, Qual Negative (Negative) Influenza Type A (PCR) (Negative) Influenza Type B (PCR) (Negative) RSV RNA Qual (PCR) (Negative) SARS-CoV-2 RNA (RT-PCR) (Negative) 09/13/21 09/13/21 09/13/21 Range/Units 17:37 17:37 17:38 WBC 3.9 L (4.8-10.8) X10*3/uL RBC 4.64 (4.20-5.50) X10*6/uL Hgb 12.3 (12.0-16.0) g/dl Hct 38.9 (37.0-47.0) % MCV 83.8 (80.0-98.0) fL MCH 26.5 L (27.0-33.0) pg MCHC 31.6 (31.0-35.0) g/dl RDW 13.5 (11.0-16.0) % Plt Count 171 (160-400) X10*3/uL MPV 11.7 (9.4-12.3) fL Immature Gran % (Auto) 0.8 H (0.0-0.4) % Neut % (Auto) 75.3 H (45-73) % Lymph % (Auto) 15.2 L (20-40) % [place] % (Auto) 8.4 (2-11) % Eos % (Auto) 0.0 (0-4) % Baso % (Auto) 0.3 (0-2) % Lymph # (Auto) 0.6 L (1.2-4.9) X10*3/uL [place] # (Auto) 0.3 (0.1-1.2) X10*3/uL Eos # (Auto) 0.0 (0.0-0.4) X10*3/uL Baso # (Auto) 0.0 (0.0-0.2) X10*3/uL Abs Immat Gran (auto) 0.03 (0.00-0.03) X10*3/uL Absolute Neuts (auto) 3.0 (2.0-8.3) x10*3/uL Absolute Nucleated RBC 0.000 (0.0-0.012) X10*3/uL Nucleated RBC % (auto) 0.0 (0.0-0.2) /100WBC PT (9.9-13.0) SEC INR (0.9-1.1) D-Dimer High Sensitivty 02188 NG/ML Sodium (135-145) mmol/L Potassium (3.3-5.1) mmol/L Chloride (96-108) mmol/L Carbon Dioxide (22-29) mmol/L Anion Gap (12-20) BUN (9-16) mg/dL Creatinine (0.5-1.4) mg/dL Estim Creat Clear Calc Estimated GFR POC Glucose (60-115) mg/dL Random Glucose (60-115) mg/dL Lactic Acid (0.5-2.0) mmol/L Calcium (8.4-10.2) mg/dL Total Bilirubin (0.0-1.0) mg/dL AST (5-31) U/L ALT (0-31) U/L Alkaline Phosphatase (39-117) U/L Troponin I High Sens (<3.5-17.0) ng/L B-Natriuretic Peptide 71 (<100) pg/mL Total Protein (6.5-8.0) g/dL Albumin (3.5-5.0) g/dL Acetone, Qual (Negative) Influenza Type A (PCR) (Negative) Influenza Type B (PCR) (Negative) RSV RNA Qual (PCR) (Negative) SARS-CoV-2 RNA (RT-PCR) (Negative) 09/13/21 09/13/21 09/13/21 Range/Units 17:38 17:38 17:42 WBC (4.8-10.8) X10*3/uL RBC (4.20-5.50) X10*6/uL Hgb (12.0-16.0) g/dl Hct (37.0-47.0) % MCV (80.0-98.0) fL MCH (27.0-33.0) pg MCHC (31.0-35.0) g/dl RDW (11.0-16.0) % Plt Count (160-400) X10*3/uL MPV (9.4-12.3) fL Immature Gran % (Auto) (0.0-0.4) % Neut % (Auto) (45-73) % Lymph % (Auto) (20-40) % [place] % (Auto) (2-11) % Eos % (Auto) (0-4) % Baso % (Auto) (0-2) % Lymph # (Auto) (1.2-4.9) X10*3/uL [place] # (Auto) (0.1-1.2) X10*3/uL Eos # (Auto) (0.0-0.4) X10*3/uL Baso # (Auto) (0.0-0.2) X10*3/uL Abs Immat Gran (auto) (0.00-0.03) X10*3/uL Absolute Neuts (auto) (2.0-8.3) x10*3/uL Absolute Nucleated RBC (0.0-0.012) X10*3/uL Nucleated RBC % (auto) (0.0-0.2) /100WBC PT 11.1 (9.9-13.0) SEC INR 1.0 (0.9-1.1) D-Dimer High Sensitivty NG/ML Sodium 134 L (135-145) mmol/L Potassium 4.6 (3.3-5.1) mmol/L Chloride 98 (96-108) mmol/L Carbon Dioxide 27 (22-29) mmol/L Anion Gap 14 (12-20) BUN 15 (9-16) mg/dL Creatinine 0.96 (0.5-1.4) mg/dL Estim Creat Clear Calc 34.5 Estimated GFR 56 POC Glucose (60-115) mg/dL Random Glucose 369 H* (60-115) mg/dL Lactic Acid (0.5-2.0) mmol/L Calcium 8.4 (8.4-10.2) mg/dL Total Bilirubin 0.4 (0.0-1.0) mg/dL AST 14 (5-31) U/L ALT 12 (0-31) U/L Alkaline Phosphatase 86 (39-117) U/L Troponin I High Sens (<3.5-17.0) ng/L B-Natriuretic Peptide (<100) pg/mL Total Protein 6.2 L (6.5-8.0) g/dL Albumin 3.5 (3.5-5.0) g/dL Acetone, Qual (Negative) Influenza Type A (PCR) NEGATIVE (Negative) Influenza Type B (PCR) NEGATIVE (Negative) RSV RNA Qual (PCR) NEGATIVE (Negative) SARS-CoV-2 RNA (RT-PCR) POSITIVE A (Negative) 09/13/21 09/13/21 Range/Units 17:48 19:52 WBC (4.8-10.8) X10*3/uL RBC (4.20-5.50) X10*6/uL Hgb (12.0-16.0) g/dl Hct (37.0-47.0) % MCV (80.0-98.0) fL MCH (27.0-33.0) pg MCHC (31.0-35.0) g/dl RDW (11.0-16.0) % Plt Count (160-400) X10*3/uL MPV (9.4-12.3) fL Immature Gran % (Auto) (0.0-0.4) % Neut % (Auto) (45-73) % Lymph % (Auto) (20-40) % [place] % (Auto) (2-11) % Eos % (Auto) (0-4) % Baso % (Auto) (0-2) % Lymph # (Auto) (1.2-4.9) X10*3/uL [place] # (Auto) (0.1-1.2) X10*3/uL Eos # (Auto) (0.0-0.4) X10*3/uL Baso # (Auto) (0.0-0.2) X10*3/uL Abs Immat Gran (auto) (0.00-0.03) X10*3/uL Absolute Neuts (auto) (2.0-8.3) x10*3/uL Absolute Nucleated RBC (0.0-0.012) X10*3/uL Nucleated RBC % (auto) (0.0-0.2) /100WBC PT (9.9-13.0) SEC INR (0.9-1.1) D-Dimer High Sensitivty NG/ML Sodium (135-145) mmol/L Potassium (3.3-5.1) mmol/L Chloride (96-108) mmol/L Carbon Dioxide (22-29) mmol/L Anion Gap (12-20) BUN (9-16) mg/dL Creatinine (0.5-1.4) mg/dL Estim Creat Clear Calc Estimated GFR POC Glucose 302 H 241 H (60-115) mg/dL Random Glucose (60-115) mg/dL Lactic Acid (0.5-2.0) mmol/L Calcium (8.4-10.2) mg/dL Total Bilirubin (0.0-1.0) mg/dL AST (5-31) U/L ALT (0-31) U/L Alkaline Phosphatase (39-117) U/L Troponin I High Sens (<3.5-17.0) ng/L B-Natriuretic Peptide (<100) pg/mL Total Protein (6.5-8.0) g/dL Albumin (3.5-5.0) g/dL Acetone, Qual (Negative) Influenza Type A (PCR) (Negative) Influenza Type B (PCR) (Negative) RSV RNA Qual (PCR) (Negative) SARS-CoV-2 RNA (RT-PCR) (Negative) Discharge Plan Discharge Clinical Impression: Hypoxia, COVID-19 Patient Disposition: Admitted As Inpatient Interventions: Admission Worksheet (ED) Last Done: 09/14/21 02:28 Discharge Date/Time: 09/14/21 02:29
--- NOTE | 2021-09-13 17:04 | PC.NURSE ---
Pt. alert and oriented x 3. Pt. speaks in full, clear sentences. LS are rhoncorous throughout. no abdominal tenderness on palpation. BS present x 4 quadrants. SKin pale, warm, and dry. ENdorses diarrhea, SOB, and congestion. No fevers but mild chills.
[2021-09-13 17:43] LABS: MANUAL DIFF FLAG NO
[2021-09-13 17:50] LABS: Basophils Percent Auto 0.3 % (0-2); Hematocrit 38.9 % (37.0-47.0); Hemoglobin 12.3 g/dl (12.0-16.0); Imm Gran Abs Auto 0.03 X10*3/uL (0.00-0.03); Imm Gran Pct Auto 0.8 % (0.0-0.4); Lymphocytes Absolute Auto 0.6 X10*3/uL (1.2-4.9); Lymphocytes Percent Auto 15.2 % (20-40); Mean Corpuscular HGB Conc 31.6 g/dl (31.0-35.0); Mean Corpuscular Hemoglobin 26.5 pg (27.0-33.0); Mean Corpuscular Volume 83.8 fL (80.0-98.0); Mean Platelet Volume 11.7 fL (9.4-12.3); Monocytes Absolute Auto 0.3 X10*3/uL (0.1-1.2); Monocytes Percent Auto 8.4 % (2-11); Neutrophils Percent Auto 75.3 % (45-73); Platelet Count 171 X10*3/uL (160-400); Red Blood Count 4.64 X10*6/uL (4.20-5.50); Red Cell Distribution Width 13.5 % (11.0-16.0); White Blood Count 3.9 X10*3/uL (4.8-10.8)
[2021-09-13 17:51] LABS: Prothrombin Time 11.1 SEC (9.9-13.0)
[2021-09-13 17:52] LABS: Glucose, Whole Blood 302 mg/dL (60-115)
[2021-09-13 17:57] LABS: Lactic Acid 1.6 mmol/L (0.5-2.0)
[2021-09-13 17:57] LABS: Acetone, serum QL Negative (Negative)
[2021-09-13 18:01] LABS: D Dimer High Sensitivity 26927 NG/ML
[2021-09-13 18:07] LABS: B Type Natriuretic Peptide 71 pg/mL (<100)
[2021-09-13 18:08] LABS: Troponin-I High Sensitivity 10.3 ng/L (<3.5-17.0)
[2021-09-13 18:08] LABS: Alanine Aminotransferase 12 U/L (0-31); Albumin Level 3.5 g/dL (3.5-5.0); Alkaline Phosphatase 86 U/L (39-117); Anion Gap 14 (12-20); Aspartate Amino Transferase 14 U/L (5-31); Bilirubin Total 0.4 mg/dL (0.0-1.0); Blood Urea Nitrogen 15 mg/dL (9-16); Calcium 8.4 mg/dL (8.4-10.2); Carbon Dioxide 27 mmol/L (22-29); Chloride 98 mmol/L (96-108); Creatinine Clr Calc Pharmacy 34.5; Estimated Glomerular Filt Rate 56; Glucose Random 369 mg/dL (60-115); Potassium 4.6 mmol/L (3.3-5.1); Sodium 134 mmol/L (135-145); Total Protein 6.2 g/dL (6.5-8.0)
[2021-09-13] MEDS: 0.9 % Sodium Chloride 500 ML IV (18:25)
[2021-09-13] MEDS: Insulin Regular, Human 100 UNIT/ML 3 ML VIAL IVPUSH (18:27)
[2021-09-13 18:31] LABS: Influenza A PCR NEGATIVE (Negative); Influenza B PCR NEGATIVE (Negative); Resp Syncy Virus RNA Qual PCR NEGATIVE (Negative); SARS COV2 PCR INHOUSE POSITIVE (Negative)
[2021-09-13] MEDS: iohexoL 350 MG/ML 100 ML INFUS..BTL IV (19:32)
[2021-09-13 19:55] LABS: Glucose, Whole Blood 241 mg/dL (60-115)
[2021-09-13 21:39] VITALS: BP 153/53; PULSE 70; RESP 15; TEMP 37.2; O2SAT 97
--- NOTE | 2021-09-13 22:24 | P.HPHOSP_ITS ---
History of Present Illness Date of Service: 09/13/21 Chief Complaint: Shortness of breath 81-year-old female with a past medical history of diabetes, hypothyroidism; presented to the hospital today with a chief complaint of generalized weakness/shortness of breath. Patient reports that over the past 1 week she has been having generalized weakness, tiredness; mentioned that she also has shortness of breath which has been gradually worsening. Complains of dyspnea on exertion. Denies any chest pain or palpitations. Complaints of cough; Denies any numbness tingling or focal weakness. Review of all other systems is negative except mentioned above ER course: Per ER team patient noted of COVID-19 positive; CT chest showed no evidence of pulmonary embolism but noted ground-glass opacities consistent COVID-19. Patient was saturating 88% on room air; placed on supplemental oxygen. Admitted for further management. 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 Mother No problems noted. Pertinent family history: As mentioned above Surgical History History of quadruple bypass Social History (Updated 02/15/21 @ 13:38 by SERGE Pabon) Alcohol intake: never Advance Directives: Yes Advance Directives on File: Yes Advance Directives Date on File: 08/04/20 Meds Allergies Allergy/AdvReac Type Severity Reaction Status Date / Time No Known Allergies Allergy Verified 06/18/21 12:39 Active Medications: Current Medications Azithromycin (Azithromycin 500 Mg Tablet) 500 mg PO Q24H JAIME Dexamethasone (Dexamethasone 6 Mg Tablet) 6 mg PO DAILY JAIME Dextrose (Dextrose 50 % 25 Gm/50 Ml Vial) 25 gm IVPUSH Q15M PRN; Protocol PRN Reason: per Hypoglycemia Standing Ord. Glucose (Glucose Gel 15 Gm Gel..Gram.) 15 gm PO Q15M PRN; Protocol PRN Reason: per Hypoglycemia Standing Ord. Ceftriaxone Sodium 1 gm/ (Sodium Chloride) 50 mls @ 100 mls/hr IV Q24H JAIME Insulin Glargine (Insulin Glargine,Hum.Rec.Anlog 100 Unit/Ml 10 Ml Vial) 15 unit SUBCUT BEDTIME JAIME Insulin Human Lispro (Insulin Lispro 100 Unit/Ml 3 Ml Vial) 0 unit SUBCUT QIDACHS JAIME; Protocol Home Medications Medication Instructions Recorded Confirmed Last Taken Type pen needle, diabetic 32 gauge x #50 ea 08/04/20 03/31/21 Unknown History Physical Exam Vital Signs and Narrative: Vital Signs: Last Vital Signs Temp 99.0 F 09/13/21 21:39 Pulse 70 09/13/21 21:39 Resp 15 09/13/21 21:39 BP 153/53 H 09/13/21 21:39 Pulse Ox 97 09/13/21 21:39 BMI result Body Mass Index 19.2 Gen: Appears be in no acute distress. Speaks in full sentences. On supplemental oxygen HEENT: NCAT, Moist mucosa. Pulmonary: coarse breath sounds, fair air entry CVS: Normal S1-S2 Abdomen: BS+, Soft, Nontender Extremities: Warm well perfused Neuro: Alert and awake. Results Labs CBC and Chem 7: 09/13/21 17:38 09/13/21 17:38 Labs: Laboratory Results - last 24 hr 09/13/21 09/13/21 09/13/21 17:36 17:37 17:37 MCV MCH MCHC RDW Plt Count MPV Immature Gran % (Auto) Neut % (Auto) Lymph % (Auto) Cecil % (Auto) Eos % (Auto) Baso % (Auto) Lymph # (Auto) [place] # (Auto) Eos # (Auto) Baso # (Auto) Abs Immat Gran (auto) Absolute Neuts (auto) Absolute Nucleated RBC Nucleated RBC % (auto) PT INR D-Dimer High Sensitivty Anion Gap Estim Creat Clear Calc Estimated GFR POC Glucose Random Glucose Lactic Acid 1.6 Calcium Total Bilirubin AST ALT Alkaline Phosphatase Troponin I High Sens 10.3 B-Natriuretic Peptide Total Protein Albumin Acetone, Qual Negative Influenza Type A (PCR) Influenza Type B (PCR) RSV RNA Qual (PCR) SARS-CoV-2 RNA (RT-PCR) 09/13/21 09/13/21 09/13/21 17:37 17:37 17:38 MCV 83.8 MCH 26.5 L MCHC 31.6 RDW 13.5 Plt Count 171 MPV 11.7 Immature Gran % (Auto) 0.8 H Neut % (Auto) 75.3 H Lymph % (Auto) 15.2 L [place] % (Auto) 8.4 Eos % (Auto) 0.0 Baso % (Auto) 0.3 Lymph # (Auto) 0.6 L Cecil # (Auto) 0.3 Eos # (Auto) 0.0 Baso # (Auto) 0.0 Abs Immat Gran (auto) 0.03 Absolute Neuts (auto) 3.0 Absolute Nucleated RBC 0.000 Nucleated RBC % (auto) 0.0 PT INR D-Dimer High Sensitivty 87109 Anion Gap Estim Creat Clear Calc Estimated GFR POC Glucose Random Glucose Lactic Acid Calcium Total Bilirubin AST ALT Alkaline Phosphatase Troponin I High Sens B-Natriuretic Peptide 71 Total Protein Albumin Acetone, Qual Influenza Type A (PCR) Influenza Type B (PCR) RSV RNA Qual (PCR) SARS-CoV-2 RNA (RT-PCR) 09/13/21 09/13/21 09/13/21 17:38 17:38 17:42 MCV MCH MCHC RDW Plt Count MPV Immature Gran % (Auto) Neut % (Auto) Lymph % (Auto) [place] % (Auto) Eos % (Auto) Baso % (Auto) Lymph # (Auto) Cecil # (Auto) Eos # (Auto) Baso # (Auto) Abs Immat Gran (auto) Absolute Neuts (auto) Absolute Nucleated RBC Nucleated RBC % (auto) PT 11.1 INR 1.0 D-Dimer High Sensitivty Anion Gap 14 Estim Creat Clear Calc 34.5 Estimated GFR 56 POC Glucose Random Glucose 369 H* Lactic Acid Calcium 8.4 Total Bilirubin 0.4 AST 14 ALT 12 Alkaline Phosphatase 86 Troponin I High Sens B-Natriuretic Peptide Total Protein 6.2 L Albumin 3.5 Acetone, Qual Influenza Type A (PCR) NEGATIVE Influenza Type B (PCR) NEGATIVE RSV RNA Qual (PCR) NEGATIVE SARS-CoV-2 RNA (RT-PCR) POSITIVE A 09/13/21 09/13/21 17:48 19:52 MCV MCH MCHC RDW Plt Count MPV Immature Gran % (Auto) Neut % (Auto) Lymph % (Auto) Cecil % (Auto) Eos % (Auto) Baso % (Auto) Lymph # (Auto) Cecil # (Auto) Eos # (Auto) Baso # (Auto) Abs Immat Gran (auto) Absolute Neuts (auto) Absolute Nucleated RBC Nucleated RBC % (auto) PT INR D-Dimer High Sensitivty Anion Gap Estim Creat Clear Calc Estimated GFR POC Glucose 302 H 241 H Random Glucose Lactic Acid Calcium Total Bilirubin AST ALT Alkaline Phosphatase Troponin I High Sens B-Natriuretic Peptide Total Protein Albumin Acetone, Qual Influenza Type A (PCR) Influenza Type B (PCR) RSV RNA Qual (PCR) SARS-CoV-2 RNA (RT-PCR) Imaging Radiologist's Impressions: Impressions Chest X-Ray 09/13/21 17:15 FINDINGS/IMPRESSION: Clear lungs. No pneumothorax. No pleural effusion. Normal cardiomediastinal silhouette. Median sternotomy wires. Cardiac valve prosthesis. Median sternotomy clips. Similar retained lead overlying the left chest wall. Chest CTA 09/13/21 19:58 IMPRESSION: 1. No central or segmental pulmonary embolism. 2. Mild, patchy peripheral ground-glass opacities within the bilateral lungs. Findings can be seen in the setting of multifocal infectious or inflammatory pneumonia, including viral pneumonia. 3. No lymphadenopathy. VTE: Negative. Assessment and Plan 81-year-old female with a past medical history of diabetes, hypothyroidism; presented to the hospital today with a chief complaint of generalized weakness/shortness of breath. Noted to have COVID-19 positive. Admitted for further management. Hypoxia: In the setting of COVID-19 infection. Supplemental oxygen p.r.n.. Currently not in respiratory distress. Morphine p.r.n.. COVID-19 infection: Continue Decadron. Supportive care. Empiric ceftriaxone azithromycin. Will obtain procalcitonin-if negative will discontinue antibiotics Id consult for further recommendations. Elevated D-dimer: Likely in setting of COVID-[address] chest showed no evidence of pulmonary embolism. Will also obtain venous duplex. Diabetes/hyperglycemia: Patient received regular insulin IV push in the ER. Will give the patient on Lantus 15 units plus insulin sliding scale. Monitor fingerstick glucose and adjust insulins as needed. Hypothyroidism: Patient on thyroid pork at home. Will continue once med rec is done. DVT prophylaxis: Lovenox Code status: Full code Quality Stroke Does the patient have a stroke diagnosis?: No VTE Prior VTE?: No VTE Risk Level:: Medical - moderate - high VTE Device Contraindication: Treatment Not Indicated VTE Drug Contraindication: Treatment Not Indicated
[2021-09-13] MEDS: Azithromycin 500 MG TABLET PO (23:19)
[2021-09-13] MEDS: cefTRIAXone sodium 1 GM in 0.9 % Sodium Chloride 50 ML IV (23:20)
[2021-09-13] MEDS: Enoxaparin Sodium 40 MG/0.4 ML SYRINGE SUBCUT (23:20)
--- NOTE | 2021-09-13 23:37 | PC.NURSE ---
pt very concerned about her with parkinsons being home alone and ill. This RN called the patients house and spoke with her son Mindi who drove down from [place] to care for her while she is here. Pt made aware
[2021-09-14] VITALS (10 sets, daily range): BP systolic 125–161; BP diastolic 43–81; PULSE 58–76; RESP 16–20; TEMP 36.5–37.5; O2SAT 95–100
[2021-09-14 00:20] LABS: Procalcitonin 0.08 ng/mL
[2021-09-14 02:31] LABS: Glucose, Whole Blood 189 mg/dL (60-115)
[2021-09-14 06:28] LABS: MANUAL DIFF FLAG NO
[2021-09-14 06:41] LABS: Basophils Percent Auto 0.3 % (0-2); Hematocrit 36.8 % (37.0-47.0); Hemoglobin 11.7 g/dl (12.0-16.0); Imm Gran Abs Auto 0.03 X10*3/uL (0.00-0.03); Imm Gran Pct Auto 0.8 % (0.0-0.4); Lymphocytes Percent Auto 26.1 % (20-40); Mean Corpuscular HGB Conc 31.8 g/dl (31.0-35.0); Mean Corpuscular Hemoglobin 26.5 pg (27.0-33.0); Mean Corpuscular Volume 83.4 fL (80.0-98.0); Monocytes Absolute Auto 0.4 X10*3/uL (0.1-1.2); Monocytes Percent Auto 9.3 % (2-11); Neutrophils Absolute Auto 2.4 x10*3/uL (2.0-8.3); Neutrophils Percent Auto 63.5 % (45-73); Platelet Count 158 X10*3/uL (160-400); Red Blood Count 4.41 X10*6/uL (4.20-5.50); Red Cell Distribution Width 13.4 % (11.0-16.0); White Blood Count 3.8 X10*3/uL (4.8-10.8)
[2021-09-14 06:48] LABS: Anion Gap 11 (12-20); Blood Urea Nitrogen 12 mg/dL (9-16); Calcium 7.9 mg/dL (8.4-10.2); Carbon Dioxide 26 mmol/L (22-29); Chloride 101 mmol/L (96-108); Creatinine Clr Calc Pharmacy 45.4; Estimated Glomerular Filt Rate > 60; Glucose Random 185 mg/dL (60-115); Potassium 4.2 mmol/L (3.3-5.1); Sodium 134 mmol/L (135-145)
[2021-09-14 08:13] LABS: Glucose, Whole Blood 156 mg/dL (60-115)
[2021-09-14] MEDS: dexAMETHasone 6 MG TABLET PO (08:44)
[2021-09-14] MEDS: 0.9 % Sodium Chloride Flush 3 ML SYRINGE IVFLUSH ×4 (08:44→21:25)
--- NOTE | 2021-09-14 09:52 | MHC.CM.PN ---
IMM 09/14/21 Female 81 DX Covid+ Lives w . 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 He has Parkinsons DX. She reports that they have both been sick > a week with SS respiratory infection. She became so week that she called 911. A neighbor called Son Ar[place]o in [place] He came down to care for his father, immediately after receiving the phone call. Prior to this illness, the pt was independent with equipment. She has a cane and a walker. The bathroom is equipped for safety. HCP is listed as on file. T/W did not find the HCP on file. A copy has been requested. DP home with services. The patient is not vaccinated. She may need assist with transportation home.
[2021-09-14 11:56] LABS: Glucose, Whole Blood 182 mg/dL (60-115)
[2021-09-14] MEDS: Insulin Lispro 100 UNIT/ML 3 ML VIAL SUBCUT ×3 (12:20→21:25)
--- NOTE | 2021-09-14 14:03 | PHA.MEDREC ---
Pharmacy Consult ? Medication Reconciliation Pharmacy has completed the medication reconciliation. Patient's son is unsure of the Insulin dose, I left the dose the same as it was previously. Em Ortiz, AbdirashidD
--- NOTE | 2021-09-14 14:12 | HO.PM.IMPN ---
Subjective Subjective Date of Service: 09/14/21 Interval History: Admitted for weakness and shortness of breath feeling better since admission, denies chest pain, complaining of dry cough, no fevers, no chills. Review of Systems Review of Systems: Yes all other systems are reviewed and are negative Physical Exam Vital Signs: Vital Signs: Last Vital Signs Temp 97.9 F 09/14/21 11:53 Pulse 72 09/14/21 11:53 Resp 18 09/14/21 11:53 BP 161/68 H 09/14/21 11:53 Pulse Ox 97 09/14/21 11:53 BMI result Body Mass Index 19.2 General awake alert x3,in no acute distress. Neck supple no JVD. CVS regular rate rhythm, Respiratory lungs clear to auscultation, no respiratory distress, no wheeze, no rhonchi. Gastrointestinal abdomen soft, nontender, bowel sounds audible, Extremities no edema. Neuro nonfocal Skin no rash Psych appropriate affect Objective Data Active Medications Acetaminophen (Acetaminophen 325 Mg Tablet) 650 mg PO Q6H PRN PRN Reason: Pain, Mild (Pain Scale 1-3) Azithromycin (Azithromycin 500 Mg Tablet) 500 mg PO Q24H [facility] Last Admin: 09/13/21 23:19 Dose: 500 mg Documented by: JAMIE Dexamethasone (Dexamethasone 6 Mg Tablet) 6 mg PO DAILY [facility] Last Admin: 09/14/21 08:44 Dose: 6 mg Documented by: KARY Dextrose (Dextrose 50 % 25 Gm/50 Ml Vial) 25 gm IVPUSH Q15M PRN; Protocol PRN Reason: per Hypoglycemia Standing Ord. Enoxaparin Sodium (Enoxaparin Sodium 40 Mg/0.4 Ml Syringe) 40 mg SUBCUT Q24H [facility] Last Admin: 09/13/21 23:20 Dose: 40 mg Documented by: JAMIE Glucose (Glucose Gel 15 Gm Gel..Gram.) 15 gm PO Q15M PRN; Protocol PRN Reason: per Hypoglycemia Standing Ord. Ceftriaxone Sodium 1 gm/ (Sodium Chloride) 50 mls @ 100 mls/hr IV Q24H [facility] Last Infusion: 09/14/21 02:19 Dose: 0 mls/hr Documented by: GURWINDER Insulin Glargine (Insulin Glargine,Hum.Rec.Anlog 100 Unit/Ml 10 Ml Vial) 15 unit SUBCUT BEDTIME [facility] Insulin Human Lispro (Insulin Lispro 100 Unit/Ml 3 Ml Vial) 0 unit SUBCUT QIDACHS [facility]; Protocol Last Admin: 09/14/21 12:20 Dose: 2 unit Documented by: KARY Melatonin (Melatonin 3 Mg Tablet) 6 mg PO BEDTIME PRN PRN Reason: Insomnia Morphine Sulfate (Morphine Sulfate 4 Mg/Ml Cartridge) 1 mg IVPUSH Q4H PRN; Protocol PRN Reason: Pain, SOB Senna (Sennosides 8.6 Mg Tablet) 17.2 mg PO BEDTIME PRN PRN Reason: Constipation Sodium Chloride (0.9 % Sodium Chloride Flush 3 Ml Syringe) 3 ml IVFLUSH QSHIFT [facility] Last Admin: 09/14/21 08:44 Dose: 3 ml Documented by: KARY Labs CBC & Chem 7: 09/14/21 06:06 09/14/21 06:06 Labs: Laboratory Results - last 24 hr 09/13/21 09/13/21 09/13/21 17:36 17:37 17:37 MCV MCH MCHC RDW Plt Count MPV Immature Gran % (Auto) Neut % (Auto) Lymph % (Auto) [place] % (Auto) Eos % (Auto) Baso % (Auto) Lymph # (Auto) [place] # (Auto) Eos # (Auto) Baso # (Auto) Abs Immat Gran (auto) Absolute Neuts (auto) Absolute Nucleated RBC Nucleated RBC % (auto) PT INR D-Dimer High Sensitivty Anion Gap Estim Creat Clear Calc Estimated GFR POC Glucose Random Glucose Lactic Acid 1.6 Calcium Total Bilirubin AST ALT Alkaline Phosphatase Troponin I High Sens 10.3 B-Natriuretic Peptide Total Protein Albumin Procalcitonin Acetone, Qual Negative Influenza Type A (PCR) Influenza Type B (PCR) RSV RNA Qual (PCR) SARS-CoV-2 RNA (RT-PCR) 09/13/21 09/13/21 09/13/21 17:37 17:37 17:38 MCV 83.8 MCH 26.5 L MCHC 31.6 RDW 13.5 Plt Count 171 MPV 11.7 Immature Gran % (Auto) 0.8 H Neut % (Auto) 75.3 H Lymph % (Auto) 15.2 L [place] % (Auto) 8.4 Eos % (Auto) 0.0 Baso % (Auto) 0.3 Lymph # (Auto) 0.6 L [place] # (Auto) 0.3 Eos # (Auto) 0.0 Baso # (Auto) 0.0 Abs Immat Gran (auto) 0.03 Absolute Neuts (auto) 3.0 Absolute Nucleated RBC 0.000 Nucleated RBC % (auto) 0.0 PT INR D-Dimer High Sensitivty 81204 Anion Gap Estim Creat Clear Calc Estimated GFR POC Glucose Random Glucose Lactic Acid Calcium Total Bilirubin AST ALT Alkaline Phosphatase Troponin I High Sens B-Natriuretic Peptide 71 Total Protein Albumin Procalcitonin Acetone, Qual Influenza Type A (PCR) Influenza Type B (PCR) RSV RNA Qual (PCR) SARS-CoV-2 RNA (RT-PCR) 09/13/21 09/13/21 09/13/21 17:38 17:38 17:42 MCV MCH MCHC RDW Plt Count MPV Immature Gran % (Auto) Neut % (Auto) Lymph % (Auto) [place] % (Auto) Eos % (Auto) Baso % (Auto) Lymph # (Auto) [place] # (Auto) Eos # (Auto) Baso # (Auto) Abs Immat Gran (auto) Absolute Neuts (auto) Absolute Nucleated RBC Nucleated RBC % (auto) PT 11.1 INR 1.0 D-Dimer High Sensitivty Anion Gap 14 Estim Creat Clear Calc 34.5 Estimated GFR 56 POC Glucose Random Glucose 369 H* Lactic Acid Calcium 8.4 Total Bilirubin 0.4 AST 14 ALT 12 Alkaline Phosphatase 86 Troponin I High Sens B-Natriuretic Peptide Total Protein 6.2 L Albumin 3.5 Procalcitonin Acetone, Qual Influenza Type A (PCR) NEGATIVE Influenza Type B (PCR) NEGATIVE RSV RNA Qual (PCR) NEGATIVE SARS-CoV-2 RNA (RT-PCR) POSITIVE A 09/13/21 09/13/21 09/13/21 17:48 19:52 23:10 MCV MCH MCHC RDW Plt Count MPV Immature Gran % (Auto) Neut % (Auto) Lymph % (Auto) [place] % (Auto) Eos % (Auto) Baso % (Auto) Lymph # (Auto) [place] # (Auto) Eos # (Auto) Baso # (Auto) Abs Immat Gran (auto) Absolute Neuts (auto) Absolute Nucleated RBC Nucleated RBC % (auto) PT INR D-Dimer High Sensitivty Anion Gap Estim Creat Clear Calc Estimated GFR POC Glucose 302 H 241 H Random Glucose Lactic Acid Calcium Total Bilirubin AST ALT Alkaline Phosphatase Troponin I High Sens B-Natriuretic Peptide Total Protein Albumin Procalcitonin 0.08 Acetone, Qual Influenza Type A (PCR) Influenza Type B (PCR) RSV RNA Qual (PCR) SARS-CoV-2 RNA (RT-PCR) 09/14/21 09/14/21 09/14/21 02:28 06:06 06:06 MCV 83.4 MCH 26.5 L MCHC 31.8 RDW 13.4 Plt Count 158 L MPV 12.0 Immature Gran % (Auto) 0.8 H Neut % (Auto) 63.5 Lymph % (Auto) 26.1 [place] % (Auto) 9.3 Eos % (Auto) 0.0 Baso % (Auto) 0.3 Lymph # (Auto) 1.0 L [place] # (Auto) 0.4 Eos # (Auto) 0.0 Baso # (Auto) 0.0 Abs Immat Gran (auto) 0.03 Absolute Neuts (auto) 2.4 Absolute Nucleated RBC 0.000 Nucleated RBC % (auto) 0.0 PT INR D-Dimer High Sensitivty Anion Gap 11 L Estim Creat Clear Calc 45.4 Estimated GFR > 60 POC Glucose 189 H Random Glucose 185 H Lactic Acid Calcium 7.9 L Total Bilirubin AST ALT Alkaline Phosphatase Troponin I High Sens B-Natriuretic Peptide Total Protein Albumin Procalcitonin Acetone, Qual Influenza Type A (PCR) Influenza Type B (PCR) RSV RNA Qual (PCR) SARS-CoV-2 RNA (RT-PCR) 09/14/21 09/14/21 08:07 11:42 MCV MCH MCHC RDW Plt Count MPV Immature Gran % (Auto) Neut % (Auto) Lymph % (Auto) [place] % (Auto) Eos % (Auto) Baso % (Auto) Lymph # (Auto) [place] # (Auto) Eos # (Auto) Baso # (Auto) Abs Immat Gran (auto) Absolute Neuts (auto) Absolute Nucleated RBC Nucleated RBC % (auto) PT INR D-Dimer High Sensitivty Anion Gap Estim Creat Clear Calc Estimated GFR POC Glucose 156 H 182 H Random Glucose Lactic Acid Calcium Total Bilirubin AST ALT Alkaline Phosphatase Troponin I High Sens B-Natriuretic Peptide Total Protein Albumin Procalcitonin Acetone, Qual Influenza Type A (PCR) Influenza Type B (PCR) RSV RNA Qual (PCR) SARS-CoV-2 RNA (RT-PCR) Assessment and Plan (1) Hypoxia: Status: Acute (2) COVID-19: Status: Acute Assessment and Plan: 81-year-old female with a past medical history of diabetes, hypothyroidism; presented to the hospital with a chief complaint of generalized weakness/shortness of breath.? Noted to have COVID-19 positive.? Admitted for further management.? Acute hypoxic respiratory failure due to COVID-19 infection/weakness Feeling better, on 2 L of oxygen, continue IV Decadron day 2, continue supportive care with cough medication On IV ceftriaxone and azithromycin procalcitonin level is 0.08 Significantly elevated D-dimer of 2700, CTA chest negative for PE, bilateral Doppler STEMI lower extremity negative for DVT, likely due to COVID Encourage frequent position change and daytime proning as tolerated Id consult pending Seen by Physical therapy due to generalized they recommend short-term rehab, patient wishes to go home will reassess at a.m. Will obtain home O2 eval UTI Generalized weakness, positive UA, patient denies urinary symptoms, continue IV ceftriaxone, urine culture ordered. Diabetes/hyperglycemia: Elevated blood sugars due to Decadron continue Lantus 18 u and insulin sliding scale, will place on diabetic diet thrombocytopenia mild drop in platelet will follow cbc Hypothyroidism: Continue [place] Thyroid, will check TSH DVT prophylaxis:? Lovenox Code status:? Full code Quality Stroke Does the patient have a stroke diagnosis?: No VTE Prior VTE?: No VTE Risk Level:: Medical - moderate - high VTE Device Contraindication: Treatment Not Indicated VTE Drug Contraindication: Treatment Not Indicated
--- NOTE | 2021-09-14 14:59 | MHC.CM.PN ---
Met with Patient RE: DP. PT recommends STR. Home O2 eval is ordered, results pending. She declines STR. Preferences for Home care were provided, referrals sent. CM will follow.
[2021-09-14 15:10] LABS: Thyroid Stimulating Hormone 4.97 uIU/mL (0.32-4.0)
--- NOTE | 2021-09-14 16:06 | W.PM.IDCN ---
History of Present Illness Data of Consult Service Date: 09/14/21 Requesting physician: Iam Duong Primary Care Provider: Unknown Physician HPI Reason for consult: COVID She presents with ten days shortness of breath,worse over last three days. 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 Mother No problems noted. Family history: reviewed and not pertinent Surgical History Surgical History History of quadruple bypass Social History Social History Household Members: Spouse Housing: House Do you presently have visiting nurse or other home services: No Alcohol intake: never Patient Tobacco Use Status: Never used Tobacco Use of substances other than those prescribed or required for medical reasons: No Currently Displaying Signs/Symptoms of Drug Intoxication Withdrawal: No Have you been hit, kicked, punched, or otherwise hurt by someone within the past year? If so, by whom?: No Do you feel safe in your current relationship?: Yes Is there a partner from a previous relationship who is making you feel unsafe now?: No Are you made to feel afraid or neglected: No Advance Directives: Yes Advance Directives on File: Yes Advance Directives Date on File: 08/04/20 Do you have thoughts of harming others: None Do you have a plan to hurt others: No Plan Recently lost weight without trying: Unsure Nutrition Risks: No Nutritional Risk Patient : No : No Poor oral hygiene: No service: No Current occupational status: retired [employer] Allergies Allergy/AdvReac Type Severity Reaction Status Date / Time No Known Allergies Allergy Verified 06/18/21 12:39 Active Medications: Current Medications Acetaminophen (Acetaminophen 325 Mg Tablet) 650 mg PO Q6H PRN PRN Reason: Pain, Mild (Pain Scale 1-3) Azithromycin (Azithromycin 500 Mg Tablet) 500 mg PO Q24H [facility] Last Admin: 09/13/21 23:19 Dose: 500 mg Documented by: Dexamethasone (Dexamethasone 6 Mg Tablet) 6 mg PO DAILY [facility] Last Admin: 09/14/21 08:44 Dose: 6 mg Documented by: Dextrose (Dextrose 50 % 25 Gm/50 Ml Vial) 25 gm IVPUSH Q15M PRN; Protocol PRN Reason: per Hypoglycemia Standing Ord. Enoxaparin Sodium (Enoxaparin Sodium 40 Mg/0.4 Ml Syringe) 40 mg SUBCUT Q24H [facility] Last Admin: 09/13/21 23:20 Dose: 40 mg Documented by: Glucose (Glucose Gel 15 Gm Gel..Gram.) 15 gm PO Q15M PRN; Protocol PRN Reason: per Hypoglycemia Standing Ord. Ceftriaxone Sodium 1 gm/ (Sodium Chloride) 50 mls @ 100 mls/hr IV Q24H [facility] Last Infusion: 09/14/21 02:19 Dose: Infused Documented by: Insulin Glargine (Insulin Glargine,Hum.Rec.Anlog 100 Unit/Ml 10 Ml Vial) 15 unit SUBCUT BEDTIME [facility] Insulin Human Lispro (Insulin Lispro 100 Unit/Ml 3 Ml Vial) 0 unit SUBCUT QIDACHS [facility]; Protocol Last Admin: 09/14/21 12:20 Dose: 2 unit Documented by: Melatonin (Melatonin 3 Mg Tablet) 6 mg PO BEDTIME PRN PRN Reason: Insomnia Morphine Sulfate (Morphine Sulfate 4 Mg/Ml Cartridge) 1 mg IVPUSH Q4H PRN; Protocol PRN Reason: Pain, SOB Senna (Sennosides 8.6 Mg Tablet) 17.2 mg PO BEDTIME PRN PRN Reason: Constipation Sodium Chloride (0.9 % Sodium Chloride Flush 3 Ml Syringe) 3 ml IVFLUSH QSHIFT [facility] Last Admin: 09/14/21 08:44 Dose: 3 ml Documented by: Thyroid (Thyroid,Pork 30 Mg Tablet) 90 mg PO DAILY@0600 [facility] Home Medications Medication Instructions Recorded Confirmed Last Taken Type pen needle, diabetic 32 gauge x #50 ea 08/04/20 03/31/21 Unknown History Physical Exam Vital Signs: Vital Signs: Last Vital Signs Temp 98.5 F 09/14/21 15:16 Pulse 62 09/14/21 15:16 Resp 18 09/14/21 15:16 BP 135/68 09/14/21 15:16 Pulse Ox 95 09/14/21 15:16 BMI result Body Mass Index 19.2 Const: General: cooperative HENMT: Head: Yes normal to inspection Mouth: Normal oral and palatal mucosa present Resp: Effort & Inspection: normal respiratory effort Cardio: Rate: regular rate Rhythm: regular rhythm GI: Palpation (GI): nontender Extrem: General: Yes normal to inspection Results Labs CBC & Chem 7: 09/14/21 06:06 09/14/21 06:06 Labs: Short CBC 09/13/21 09/14/21 Range/Units 17:38 06:06 WBC 3.9 L 3.8 L (4.8-10.8) X10*3/uL Hgb 12.3 11.7 L (12.0-16.0) g/dl Hct 38.9 36.8 L (37.0-47.0) % Plt Count 171 158 L (160-400) X10*3/uL BMP 09/13/21 09/14/21 17:38 06:06 Sodium 134 L 134 L Potassium 4.6 4.2 Chloride 98 101 Carbon Dioxide 27 26 BUN 15 12 Creatinine 0.96 0.73 Calcium 8.4 7.9 L Liver Function 09/13/21 Range/Units 17:38 Total Bilirubin 0.4 (0.0-1.0) mg/dL AST 14 (5-31) U/L ALT 12 (0-31) U/L Alkaline Phosphatase 86 (39-117) U/L Albumin 3.5 (3.5-5.0) g/dL Assessment and Plan (1) COVID-19: Status: Acute She is past seven days so no Remdesivir Continue oxygen Continue Dexamethasone Would not give baricitinib as low oxygen requirement No antibiotics No VTE (2) Hypoxia: Status: Acute
[2021-09-14 16:24] LABS: Glucose, Whole Blood 342 mg/dL (60-115)
[2021-09-14 20:54] LABS: Glucose, Whole Blood 308 mg/dL (60-115)
[2021-09-14] MEDS: Insulin Glargine,Hum.rec.anlog 100 UNIT/ML 10 ML VIAL 15 UNIT SUBCUT (21:24)
[2021-09-14] MEDS: cefTRIAXone sodium 1 GM in 0.9 % Sodium Chloride 50 ML IV (23:16)
[2021-09-14] MEDS: Enoxaparin Sodium 40 MG/0.4 ML SYRINGE SUBCUT (23:17)
[2021-09-14] MEDS: Azithromycin 500 MG TABLET PO (23:17)
[2021-09-15] VITALS (8 sets, daily range): BP systolic 124–172; BP diastolic 58–77; PULSE 60–78; RESP 16–20; TEMP 36.6–37.3; O2SAT 93–97
[2021-09-15] MEDS: Thyroid,Pork 30 MG TABLET 90 MG PO (06:16)
[2021-09-15 06:44] LABS: Hematocrit 39.5 % (37.0-47.0); Hemoglobin 12.6 g/dl (12.0-16.0); Mean Corpuscular HGB Conc 31.9 g/dl (31.0-35.0); Mean Corpuscular Hemoglobin 26.6 pg (27.0-33.0); Mean Corpuscular Volume 83.5 fL (80.0-98.0); Mean Platelet Volume 12.1 fL (9.4-12.3); Platelet Count 144 X10*3/uL (160-400); Red Blood Count 4.73 X10*6/uL (4.20-5.50); Red Cell Distribution Width 13.5 % (11.0-16.0); White Blood Count 5.4 X10*3/uL (4.8-10.8)
[2021-09-15 06:53] LABS: Anion Gap 12 (12-20); Blood Urea Nitrogen 16 mg/dL (9-16); Calcium 8.4 mg/dL (8.4-10.2); Carbon Dioxide 26 mmol/L (22-29); Chloride 103 mmol/L (96-108); Creatinine Clr Calc Pharmacy 43.6; Estimated Glomerular Filt Rate > 60; Glucose Random 95 mg/dL (60-115); Potassium 4.2 mmol/L (3.3-5.1); Sodium 137 mmol/L (135-145)
[2021-09-15 07:53] LABS: Glucose, Whole Blood 83 mg/dL (60-115)
--- NOTE | 2021-09-15 09:40 | PC.NURSE ---
brant OWEN of diffuse slight red rash to upper truck of patient (no complaints of anything from patient herself). requesting Home 02 eval--spoke with RT who will re-eval patient today. Will also speak with PT about Amb ability--patient is requesting to go home rather than a STR
[2021-09-15] MEDS: 0.9 % Sodium Chloride Flush 3 ML SYRINGE IVFLUSH ×3 (10:03→21:30)
[2021-09-15] MEDS: dexAMETHasone 6 MG TABLET PO (10:03)
[2021-09-15 11:27] LABS: Glucose, Whole Blood 210 mg/dL (60-115)
[2021-09-15] MEDS: Insulin Lispro 100 UNIT/ML 3 ML VIAL SUBCUT ×3 (11:52→21:30)
--- NOTE | 2021-09-15 12:19 | MHC.CM.PN ---
Plan to discharge today after Home Oxygen evaluation. Her son will provide transportation. [facility] will provide home care services.
[2021-09-15 14:44] LABS: Appearance Urine CLEAR; Color Urine YELLOW; Glucose Urine UA 500 MG/DL (NEG); Leukocyte Esterase Urine NEG (NEG); Nitrite Urine NEG (NEG); PH 5.5 (5.0-8.0); UACC Culture Trigger NO; Urine Blood 2+ (NEG); Urine Ketones 15 MG/DL (NEG); Urine Protein TRACE MG/DL (NEG-TRACE)
--- NOTE | 2021-09-15 15:14 | PC.NURSE ---
Spoke to pt's son who lives out of state, and he states that he is able to stay with his mother (the patient) to provide care for her as well as pt's . Provider is aware
[2021-09-15 15:17] LABS: Bacteria Urine TRACE /LPF; Squamous Epithelial Cell Urine TRACE /LPF; WBC Urine 0-2 /HPF (0-4)
[2021-09-15 16:09] LABS: Glucose, Whole Blood 255 mg/dL (60-115)
--- NOTE | 2021-09-15 17:07 | P.PNIM_ITS ---
Subjective Subjective Date of Service: 09/15/21 Interval History: Feels weak this morning, denies shortness of breath, denies urinary symptoms of urgency or frequency no fever chills overnight, denies itching, nurse noted faint rash on torso. Review of Systems Review of Systems: Yes all other systems are reviewed and are negative Physical Exam Vital Signs: Vital Signs: Last Vital Signs Temp 98.9 F 09/15/21 15:19 Pulse 62 09/15/21 15:19 Resp 17 09/15/21 15:19 BP 142/62 H 09/15/21 15:19 Pulse Ox 94 09/15/21 15:19 BMI result Body Mass Index 19.2 General awake alert x3,in no acute distress.? Neck? supple no JVD. CVS? regular rate rhythm, Respiratory lungs clear to auscultation, no respiratory distress, no wheeze, no rhonchi. Gastrointestinal abdomen soft, nontender, bowel sounds audible, Extremities no edema. Neuro nonfocal Skin no rash noted Psych appropriate affect Objective Data Active Medications Acetaminophen (Acetaminophen 325 Mg Tablet) 650 mg PO Q6H PRN PRN Reason: Pain, Mild (Pain Scale 1-3) Dexamethasone (Dexamethasone 6 Mg Tablet) 6 mg PO DAILY [facility] Last Admin: 09/15/21 10:03 Dose: 6 mg Documented by: KARY Dextrose (Dextrose 50 % 25 Gm/50 Ml Vial) 25 gm IVPUSH Q15M PRN; Protocol PRN Reason: per Hypoglycemia Standing Ord. Enoxaparin Sodium (Enoxaparin Sodium 40 Mg/0.4 Ml Syringe) 40 mg SUBCUT Q24H [facility] Last Admin: 09/14/21 23:17 Dose: 40 mg Documented by: SAM Glucose (Glucose Gel 15 Gm Gel..Gram.) 15 gm PO Q15M PRN; Protocol PRN Reason: per Hypoglycemia Standing Ord. Insulin Glargine (Insulin Glargine,Hum.Rec.Anlog 100 Unit/Ml 10 Ml Vial) 15 unit SUBCUT BEDTIME [facility] Last Admin: 09/14/21 21:24 Dose: 15 unit Documented by: SAM Insulin Human Lispro (Insulin Lispro 100 Unit/Ml 3 Ml Vial) 0 unit SUBCUT QIDACHS [facility]; Protocol Last Admin: 09/15/21 16:47 Dose: 6 unit Documented by: KARY Melatonin (Melatonin 3 Mg Tablet) 6 mg PO BEDTIME PRN PRN Reason: Insomnia Morphine Sulfate (Morphine Sulfate 4 Mg/Ml Cartridge) 1 mg IVPUSH Q4H PRN; Protocol PRN Reason: Pain, SOB Senna (Sennosides 8.6 Mg Tablet) 17.2 mg PO BEDTIME PRN PRN Reason: Constipation Sodium Chloride (0.9 % Sodium Chloride Flush 3 Ml Syringe) 3 ml IVFLUSH QSHIFT [facility] Last Admin: 09/15/21 16:48 Dose: 3 ml Documented by: KARY Thyroid (Thyroid,Pork 30 Mg Tablet) 90 mg PO DAILY@0600 [facility] Last Admin: 09/15/21 06:16 Dose: 90 mg Documented by: SAM Labs CBC & Chem 7: 09/15/21 06:08 09/15/21 06:08 Labs: Laboratory Results - last 24 hr 09/14/21 09/15/21 09/15/21 20:29 06:08 06:08 MCV 83.5 MCH 26.6 L MCHC 31.9 RDW 13.5 Plt Count 144 L MPV 12.1 Absolute Nucleated RBC 0.000 Nucleated RBC % (auto) 0.0 Anion Gap 12 Estim Creat Clear Calc 43.6 Estimated GFR > 60 POC Glucose 308 H Random Glucose 95 Calcium 8.4 D Urine Color Urine Appearance Urine pH Ur Specific [place] Urine Protein Urine Glucose (UA) Urine Ketones Urine Blood Urine Nitrite Ur Leukocyte Esterase Urine RBC Urine WBC Ur Squamous Epith Cells Urine Bacteria 09/15/21 09/15/21 09/15/21 07:32 11:18 14:20 MCV MCH MCHC RDW Plt Count MPV Absolute Nucleated RBC Nucleated RBC % (auto) Anion Gap Estim Creat Clear Calc Estimated GFR POC Glucose 83 210 H Random Glucose Calcium Urine Color YELLOW Urine Appearance CLEAR Urine pH 5.5 Ur Specific [place] 1.020 Urine Protein TRACE Urine Glucose (UA) 500 H Urine Ketones 15 Urine Blood 2+ H Urine Nitrite NEG Ur Leukocyte Esterase NEG Urine RBC 15-29 H Urine WBC 0-2 Ur Squamous Epith Cells TRACE Urine Bacteria TRACE 09/15/21 16:00 MCV MCH MCHC RDW Plt Count MPV Absolute Nucleated RBC Nucleated RBC % (auto) Anion Gap Estim Creat Clear Calc Estimated GFR POC Glucose 255 H Random Glucose Calcium Urine Color Urine Appearance Urine pH Ur Specific [place] Urine Protein Urine Glucose (UA) Urine Ketones Urine Blood Urine Nitrite Ur Leukocyte Esterase Urine RBC Urine WBC Ur Squamous Epith Cells Urine Bacteria Microbiology Microbiology Results: Microbiology 09/13/21 23:06 Blood Culture - Preliminary Blood - Venous No growth after 24 hours. 09/13/21 23:10 Blood Culture - Preliminary Blood - Venous No growth after 24 hours. Assessment and Plan (1) Hypoxia: Status: Acute (2) COVID-19: Status: Acute (3) Type 1 diabetes mellitus with long-term current use of insulin: Status: Acute Assessment and Plan: 81-year-old female with a past medical history of diabetes, hypothyroidism; presented to the hospital with a chief complaint of generalized weakness/shortness of breath.? Noted to have COVID-19 positive.? Admitted for further management.? Acute hypoxic respiratory failure due to COVID-19 infection/weakness Feeling better, on 2 L of oxygen, continue IV Decadron day 12/02, continue supportive care with cough medication Will DC IV antibiotic, since low procalcitonin level 0.08 Significantly elevated D-dimer of 2700, CTA chest negative for PE, bilateral Doppler lower extremity negative for DVT, likely due to COVID Encourage frequent position change and daytime proning as tolerated Seen by ID patient does not qualify for remdesivir Seen by Physical therapy due to generalized weakness they recommend short-term rehab,/17/04 care if goes home . Will wean off oxygen as tolerated not on home O2 UTI Repeat UA is negative patient has no urinary symptoms will DC IV antibiotic Diabetes/hyperglycemia: Elevated blood sugars due to Decadron continue Lantus 18 u and insulin sliding scale, will place on diabetic diet thrombocytopenia mild drop in platelet follow CBC Transient rash resolved question due to sweat and heat Hypothyroidism:? Continue [place] Thyroid, will check TSH DVT prophylaxis:? Lovenox Code status:? Full code Quality Stroke Does the patient have a stroke diagnosis?: No VTE Prior VTE?: No VTE Risk Level:: Medical - moderate - high VTE Device Contraindication: Treatment Not Indicated VTE Drug Contraindication: Treatment Not Indicated
[2021-09-15 20:11] LABS: Glucose, Whole Blood 192 mg/dL (60-115)
[2021-09-15] MEDS: Insulin Glargine,Hum.rec.anlog 100 UNIT/ML 10 ML VIAL 15 UNIT SUBCUT (21:30)
[2021-09-15] MEDS: Acetaminophen 325 MG TABLET 650 MG PO (21:38)
[2021-09-15] MEDS: Enoxaparin Sodium 40 MG/0.4 ML SYRINGE SUBCUT (23:52)
[2021-09-16 03:31] VITALS: BP 149/67; PULSE 61; RESP 18; TEMP 36.7; O2SAT 95
[2021-09-16 04:08] LABS: Glucose, Whole Blood 58 mg/dL (60-115)
[2021-09-16 04:08] LABS: Glucose, Whole Blood 60 mg/dL (60-115)
--- NOTE | 2021-09-16 04:08 | PC.NURSE ---
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 Dr. Tracey updated. states day team to reduce lantus 15 units sc at bedtime as at home. will continue to monitor. pt aware of need to recheck blood sugar, initially refuses stating she wants to sleep but then agrees.
[2021-09-16 04:27] LABS: Glucose, Whole Blood 230 mg/dL (60-115)
--- NOTE | 2021-09-16 04:30 | PC.NURSE ---
s/p peanut butter crackers & cran/oj 240ml, recheck poc 58, d50% iv 25G given as ordered, on recheck @ 0420, poc 230. pt refuses further poc testing (protocol requires q15 checks until consecutive x [address] Tracey aware.
[2021-09-16] MEDS: Thyroid,Pork 30 MG TABLET 90 MG PO (06:00)
[2021-09-16 07:32] LABS: Glucose, Whole Blood 148 mg/dL (60-115)
[2021-09-16 07:42] VITALS: BP 165/67; PULSE 68; RESP 20; TEMP 37.6; O2SAT 93
[2021-09-16] MEDS: dexAMETHasone 6 MG TABLET PO (09:06)
[2021-09-16] MEDS: 0.9 % Sodium Chloride Flush 3 ML SYRINGE IVFLUSH (09:07)
[2021-09-16 09:43] VITALS: BP 165/67; PULSE 68; O2SAT 93
[2021-09-16 11:12] LABS: Glucose, Whole Blood 65 mg/dL (60-115)
[2021-09-16 11:22] VITALS: BP 152/50; PULSE 82; RESP 16; TEMP 37.5; O2SAT 94
--- NOTE | 2021-09-16 13:38 | W.MHC.F2F ---
Service Date Service Date: 09/16/21 Encounter Date of encounter: 09/16/21 Reasons for Services Signs and symptoms assessed: Generalized weakness, COVID-19 infection hypoxia resolved Reason for long term: diabetic teaching, monitoring of unstable blood sugar and medication management Reason for occupational therapy: home safety and mobility Homebound: Leaving the home is medically contraindicated at this time without the asist of a device and/or another person due th the listed conditions above and below. Reason homebound: weakness related to hospital stay Certification: Based on the above findings, I certify that this patient is confined to the home and needs intermittent long term care, physical therapy and/or speech therapy, or continues to need occupational therapy. The patient is under my care, and I have initiated the establishment of the plan of care. The patient will be followed by a physician who will periodically review the plan of care.
--- NOTE | 2021-09-16 13:39 | PM.DS ---
DS: Providers Provider Date of Service: 09/16/21 Date of admission: 09/13/21 22:22 Primary care physician: Unknown Physician Consults: 09/13/21 22:20 Consult to Infectious Diseases Routine Consulting Provider: Shobha Holland Reason for consultation: COVID PNA DS: Diagnosis Discharge Diagnosis (1) Hypoxia: Status: Acute (2) COVID-19: Status: Acute (3) Type 1 diabetes mellitus with long-term current use of insulin: Status: Acute DS: Summary Hospital Course Hospital Course: Chief Complaint: Shortness of breath 81-year-old female with a past medical history of diabetes, hypothyroidism; presented to the hospital today with a chief complaint of generalized weakness/shortness of breath.? Patient reports that over the past 1 week she has been having generalized weakness, tiredness; mentioned that she also has shortness of breath which has been gradually worsening.? Complains of dyspnea on exertion.? Denies any chest pain or palpitations.? Complaints of cough; Denies any numbness tingling or focal weakness.? Review of all other systems is negative except mentioned above ER course: Per ER team patient noted of COVID-19 positive; CT chest showed no evidence of pulmonary embolism but noted ground-glass opacities consistent COVID-19. Patient was saturating 88% on room air; placed on supplemental oxygen.? Admitted for further management. Hospital course 81-year-old female with a past medical history of diabetes, hypothyroidism; presented to the hospital with a chief complaint of generalized weakness/shortness of breath and diagnosed to have Acute hypoxic respiratory failure due to COVID-19 infection with generalized weakness, patient noted to have significantly elevated D-dimer of 2700, CTA chest negative for PE, bilateral Doppler lower extremity showed no DVT, elevated D-dimer likely due to COVID, patient responded to IV Decadron, cough medications supportive care, patient is doing significantly better was followed closely by physical therapy they recommend home with PT weakness Patient oxygenation is stable on room air. Initially patient felt to have urinary tract infection however repeat UA is negative and urine culture showed no growth. Diabetes mellitus on insulin patient initially noted to have intermittent high blood sugars likely due to Decadron , continue Lantus 10 units daily , noted to have low blood sugars at a.m. follow blood sugar closely Hypothyroidism:? Continue [place] Thyroid, TSH 4.97. Mild thrombocytopenia likely due to COVID infection recommend CBC in 1 week. Time Spent with Patient Time attestation: Total time spent providing and/or coordinating discharge services: Discharge coordination time: Greater than 30 minutes Quality: Stroke Does the patient have a stroke diagnosis?: No Physical Exam Vital Signs: Vital Signs: Last Vital Signs Temp 99.5 F 09/16/21 11:22 Pulse 82 09/16/21 11:22 Resp 16 09/16/21 11:22 BP 152/50 H 09/16/21 11:22 Pulse Ox 94 09/16/21 11:22 BMI result Body Mass Index 19.2 General awake aler t x3,in no acute d istress.? Neck? aguilar pple no JVD. CVS? regular rate rhyth m, Respiratory andrea gs clear to auscul tation, no respira tory distress, no wheeze, no rhonchi . Gastrointestinal abdomen soft, non tender, bowel soun ds audible. Extrem ities no edema. Ne uro nonfocal Skin no rash noted Psyc h appropriate affe ct DS: Data Data Completed and Pending Labs on day of discharge: Laboratory Results - last 24 hr 09/15/21 09/15/21 09/15/21 14:20 16:00 20:06 POC Glucose 255 H 192 H Urine Color YELLOW Urine Appearance CLEAR Urine pH 5.5 Ur Specific [place] 1.020 Urine Protein TRACE Urine Glucose (UA) 500 H Urine Ketones 15 Urine Blood 2+ H Urine Nitrite NEG Ur Leukocyte Esterase NEG Urine RBC 15-29 H Urine WBC 0-2 Ur Squamous Epith Cells TRACE Urine Bacteria TRACE 09/16/21 09/16/21 09/16/21 03:35 03:50 04:24 POC Glucose 60 58 L* 230 H Urine Color Urine Appearance Urine pH Ur Specific [place] Urine Protein Urine Glucose (UA) Urine Ketones Urine Blood Urine Nitrite Ur Leukocyte Esterase Urine RBC Urine WBC Ur Squamous Epith Cells Urine Bacteria 09/16/21 09/16/21 07:22 11:00 POC Glucose 148 H 65 Urine Color Urine Appearance Urine pH Ur Specific [place] Urine Protein Urine Glucose (UA) Urine Ketones Urine Blood Urine Nitrite Ur Leukocyte Esterase Urine RBC Urine WBC Ur Squamous Epith Cells Urine Bacteria Preliminary micro results at discharge 09/13/21 23:06 Blood Culture - Preliminary Blood - Venous No growth after 48 hours. 09/13/21 23:10 Blood Culture - Preliminary Blood - Venous No growth after 48 hours. Discharge Plan Discharge Patient Disposition: Home Health Service Discharge Diagnosis: Acute hypoxic respiratory failure due to COVID-19 infection Referrals: [facility] [Outside] - 1 Week Vishnu Pascal MD [Physician] - 09/20/21 1:30 pm (You have a telephone appointment scheduled for September 20 at 1:[address] Psacal. Your doctor will call you at the time of your appointment.) Discharge Medications: New dexamethasone 6 mg Tablet 6 mg PO DAILY Qty: 6 RF: 0 Lantus U-100 Insulin 100 unit/mL Solution 10 unit subcut BEDTIME Qty: 10 RF: 0 acetaminophen 325 mg Tablet 650 mg PO Q6H PRN (Reason: Pain, Mild (Pain Scale 1-3)) Qty: 30 RF: 0 Continued thyroid (pork) [[place] Thyroid] 90 mg tablet 90 mg PO DAILY 90 Days Qty: 90 RF: 1 (DME) Dexcom G6 Sensor Device See Rx Instructions .ROUTE .MEDSUPPLY Qty: 3 RF: 5 (DME) Dexcom System Support Technician Misc See Rx Instructions .ROUTE .MEDSUPPLY Qty: 1 RF: 5 (DME) Dexcom G6 Transmitter Device See Rx Instructions .ROUTE .MEDSUPPLY Qty: 1 RF: 3 (DME) pen needle, diabetic 32 gauge x 5/32 needle See Rx Instructions ea subcut .MEDSUPPLY Qty: 50 RF: 0 (DME) Omnipod Insulin Management Misc See Rx Instructions .ROUTE .MEDSUPPLY Qty: 1 RF: 3 Discontinued Lantus Solostar U-100 Insulin 100 unit/mL (3 mL) insulin pen See Rx Instructions subcut DAILY 90 Days Qty: 45 RF: 3 Discharge Orders: Discharge Order (Routine); Ordered 09/16/21 Ordered By: Iam Duong Diet: diabetic diet Activity on Discharge: As tolerated Stand Alone Forms: Patient Portal Discharge page Care Plan Goals: Generalized weakness due to COVID-19 infection, hypoxia resolved take dexamethasone 6 mg by mouth daily for 6 more days with food, rest follow blood sugars [facility] for blood sugar monitoring and disease management, physical therapy for exercise Health Concerns: Diabetes mellitus/hypothyroidism Plan of Treatment: Follow-up with PCP in next 1-2 weeks Assessment: Per discharge summary
--- NOTE | 2021-09-16 14:32 | MHC.CM.PN ---
IMM 09/16/21 Female 81 Covid+ is discharged today to home with home services. [facility] will provide SN and PT. All discharge info and Face 2 Face have been sent to the agency. Pts sonAristeo has been notified that discharge is today. He will provide transport home. The RN will call him to review the discharge instructions. She will also notify that Pt is ready for picker feeder.
[2021-09-20 09:14] LABS: Glucose, Whole Blood 247 mg/dL (60-115)
== END 2021-09-16 16:39 | disposition home health service (06) | DRG 177 ==
LOC: HO.ED 21:12 → HO.EDOVER 22:28 → HO.IMC 09-14 00:55
PROVIDERS: Admitting Provider Hospitalist; Emergency Provider Emergency Medicine; PCP Internal Medicine; Visit Provider Hospitalist
DX: U07.1 COVID-19 (principal); J96.01 Acute respiratory failure with hypoxia; N39.0 Urinary tract infection, site not specified; E10.65 Type 1 diabetes mellitus with hyperglycemia; E03.9 Hypothyroidism, unspecified; Z79.4 Long term (current) use of insulin; Z79.890 Hormone replacement therapy; Z79.899 Other long term (current) drug therapy
CPT/HCPCS: 0241U; 36415; 71045; 71275; 80048; 80053; 81001; 81003; 82009; 82947; 83605; 83880; 84145; 84443; 84484; 85025; 85027; 85379; 85610; 87040; 87086; 93005; 93970; 97116; 97162; 97530; 99285; J0696; J1650; J8540; Q9967

== ENCOUNTER 2021-10-21 09:23 | Outpatient (REF) | payer MEDICARE, SELFPAY ==
[2021-10-21 10:01] LABS: MANUAL DIFF FLAG NO
[2021-10-21 10:25] LABS: Basophils Percent Auto 0.8 % (0-2); Eosinophils Absolute Auto 0.2 X10*3/uL (0.0-0.4); Eosinophils Percent Auto 3.4 % (0-4); Hematocrit 37.9 % (37.0-47.0); Imm Gran Abs Auto 0.02 X10*3/uL (0.00-0.03); Imm Gran Pct Auto 0.4 % (0.0-0.4); Lymphocytes Absolute Auto 1.3 X10*3/uL (1.2-4.9); Lymphocytes Percent Auto 23.6 % (20-40); Mean Corpuscular HGB Conc 31.7 g/dl (31.0-35.0); Mean Corpuscular Volume 85.2 fL (80.0-98.0); Mean Platelet Volume 11.5 fL (9.4-12.3); Monocytes Absolute Auto 0.5 X10*3/uL (0.1-1.2); Monocytes Percent Auto 9.6 % (2-11); Neutrophils Absolute Auto 3.3 x10*3/uL (2.0-8.3); Neutrophils Percent Auto 62.2 % (45-73); Platelet Count 238 X10*3/uL (160-400); Red Blood Count 4.45 X10*6/uL (4.20-5.50); Red Cell Distribution Width 14.5 % (11.0-16.0); White Blood Count 5.3 X10*3/uL (4.8-10.8)
[2021-10-21 10:32] LABS: Estimated Average Glucose 246 mg/dL; Hemoglobin A1c % 10.2 %
[2021-10-21 10:42] LABS: Appearance Urine CLEAR; Color Urine YELLOW; Glucose Urine UA 500 MG/DL (NEG); Leukocyte Esterase Urine NEG (NEG); Nitrite Urine NEG (NEG); PH 5.5 (5.0-8.0); Specific Gravity - Urine >= 1.030 (1.005-1.025); Urine Blood NEG (NEG); Urine Ketones NEG (NEG); Urine Protein NEG (NEG-TRACE)
[2021-10-21 10:56] LABS: Alanine Aminotransferase 10 U/L (0-31); Albumin Level 3.4 g/dL (3.5-5.0); Alkaline Phosphatase 98 U/L (39-117); Anion Gap 10 (12-20); Aspartate Amino Transferase 11 U/L (5-31); Bilirubin Total 0.5 mg/dL (0.0-1.0); Blood Urea Nitrogen 19 mg/dL (9-16); Calcium 9.1 mg/dL (8.4-10.2); Carbon Dioxide 27 mmol/L (22-29); Chloride 104 mmol/L (96-108); Cholesterol 184 mg/dL; Estimated Glomerular Filt Rate > 60; Glucose Fasting 258 mg/dL (60-99); HDL Cholesterol 39 mg/dL; LDL Cholesterol Calculated 125 mg/dl; Sodium 136 mmol/L (135-145); Total Protein 6.4 g/dL (6.5-8.0); Triglycerides 101 mg/dL
[2021-10-21 11:05] LABS: Creatinine Urine 127.68 mg/dL; Microalbum/Creatinine Ratio Ur 10.1 ug/mg cr
[2021-10-21 11:16] LABS: Free T4 (Free Thyroxine) 0.76 ng/dL (0.71-1.85); Thyroid Stimulating Hormone 0.59 uIU/mL (0.32-4.0); Vitamin D 25-OH Total 32.4 ng/mL (>30)
== END 2021-10-21 09:24 | disposition home or self-care (01) ==
LOC: HO.LAB 09:23
PROVIDERS: PCP Internal Medicine; Visit Provider Internal Medicine
DX: E78.00 Pure hypercholesterolemia, unspecified (principal); I10 Essential (primary) hypertension; D69.6 Thrombocytopenia, unspecified; I25.10 Atherosclerotic heart disease of native coronary artery without angina pectoris; E55.9 Vitamin D deficiency, unspecified; E11.9 Type 2 diabetes mellitus without complications; E03.9 Hypothyroidism, unspecified
CPT/HCPCS: 36415; 80053; 80061; 81003; 82043; 82306; 83036; 84439; 84443; 85025; 85027

== ENCOUNTER → 2022-03-23 09:24 | Outpatient (BNVA) | payer MEDICARE, OTHER, SELFPAY | PROVIDERS: PCP Internal Medicine; Visit Provider Internal Medicine Endocrinology, Diabetes & Metabolism | DX: E10.69 Type 1 diabetes mellitus with other specified complication (principal); Z79.4 Long term (current) use of insulin | CPT/HCPCS: 82947; 99202 ==

== ENCOUNTER → 2022-04-04 10:47 | Outpatient (BNVA) | payer MEDICARE, OTHER, SELFPAY | PROVIDERS: PCP Internal Medicine; Visit Provider Registered Nurse Diabetes Educator | DX: Z46.81 Encounter for fitting and adjustment of insulin pump (principal); E10.69 Type 1 diabetes mellitus with other specified complication | CPT/HCPCS: 99211 ==

== ENCOUNTER 2022-04-14 07:16 | Outpatient (REF) | payer MEDICARE, OTHER, SELFPAY ==
[2022-04-14 07:33] LABS: MANUAL DIFF FLAG NO
[2022-04-14 08:00] LABS: Basophils Absolute Auto 0.1 X10*3/uL (0.0-0.2); Basophils Percent Auto 0.9 % (0-2); Eosinophils Absolute Auto 0.4 X10*3/uL (0.0-0.4); Hematocrit 38.3 % (37.0-47.0); Hemoglobin 12.2 g/dl (12.0-16.0); Imm Gran Abs Auto 0.02 X10*3/uL (0.00-0.03); Imm Gran Pct Auto 0.4 % (0.0-0.4); Lymphocytes Percent Auto 37.2 % (20-40); Mean Corpuscular HGB Conc 31.9 g/dl (31.0-35.0); Mean Corpuscular Hemoglobin 26.8 pg (27.0-33.0); Mean Platelet Volume 11.8 fL (9.4-12.3); Monocytes Absolute Auto 0.5 X10*3/uL (0.1-1.2); Monocytes Percent Auto 8.8 % (2-11); Neutrophils Absolute Auto 2.5 x10*3/uL (2.0-8.3); Neutrophils Percent Auto 44.7 % (45-73); Platelet Count 194 X10*3/uL (160-400); Red Blood Count 4.56 X10*6/uL (4.20-5.50); Red Cell Distribution Width 14.5 % (11.0-16.0); White Blood Count 5.5 X10*3/uL (4.8-10.8)
[2022-04-14 08:22] LABS: Alanine Aminotransferase 8 U/L (0-31); Albumin Level 3.7 g/dL (3.5-5.0); Alkaline Phosphatase 126 U/L (39-117); Anion Gap 9 (12-20); Aspartate Amino Transferase 11 U/L (5-31); Bilirubin Total 0.4 mg/dL (0.0-1.0); Blood Urea Nitrogen 17 mg/dL (9-16); Calcium 9.3 mg/dL (8.4-10.2); Carbon Dioxide 30 mmol/L (22-29); Chloride 103 mmol/L (96-108); Cholesterol 219 mg/dL; Estimated Glomerular Filt Rate > 60; Glucose Fasting 288 mg/dL (60-99); HDL Cholesterol 51 mg/dL; LDL Cholesterol Calculated 152 mg/dl; Potassium 5.2 mmol/L (3.3-5.1); Sodium 137 mmol/L (135-145); Total Protein 6.3 g/dL (6.5-8.0); Triglycerides 82 mg/dL
[2022-04-14 08:31] LABS: Estimated Average Glucose 269 mg/dL; Hemoglobin A1C 310.4966 umol/L
[2022-04-14 08:35] LABS: Free T4 (Free Thyroxine) 0.77 ng/dL (0.71-1.85); Thyroid Stimulating Hormone 2.05 uIU/mL (0.32-4.0)
[2022-04-14 10:54] LABS: Appearance Urine CLEAR; Color Urine YELLOW; Glucose Urine UA >=1000 MG/DL (NEG); Leukocyte Esterase Urine NEG (NEG); Nitrite Urine NEG (NEG); PH 5.5 (5.0-8.0); Specific Gravity - Urine 1.025 (1.005-1.025); Urine Blood NEG (NEG); Urine Ketones NEG (NEG); Urine Protein NEG (NEG-TRACE)
[2022-04-14 11:22] LABS: RBC Urine 0 /HPF (0); Squamous Epithelial Cell Urine TRACE /LPF
[2022-04-14 11:58] LABS: Creatinine Urine 90.48 mg/dL; Microalbum/Creatinine Ratio Ur 16.5 ug/mg cr
== END 2022-04-14 07:17 | disposition home or self-care (01) ==
LOC: HO.LAB 07:16
PROVIDERS: PCP Internal Medicine; Referring Provider Internal Medicine Endocrinology, Diabetes & Metabolism; Visit Provider Internal Medicine
DX: E55.9 Vitamin D deficiency, unspecified (principal); E11.9 Type 2 diabetes mellitus without complications; E78.00 Pure hypercholesterolemia, unspecified; E03.9 Hypothyroidism, unspecified; I10 Essential (primary) hypertension
CPT/HCPCS: 36415; 80053; 80061; 81001; 82043; 82306; 83036; 84439; 84443; 85025

== ENCOUNTER → 2022-10-05 10:16 | Outpatient (BNVA) | payer MEDICARE, OTHER, SELFPAY | PROVIDERS: PCP Internal Medicine; Visit Provider Dietitian, Registered | DX: E10.69 Type 1 diabetes mellitus with other specified complication (principal) | CPT/HCPCS: 97802 ==